=== PATIENT | female | born 1995 | race Two or more races ===

== ENCOUNTER 2016-09-23 10:03 | Outpatient (CLI) | payer MEDICAID | END 2016-09-23 10:04 | disposition home or self-care (01) | DX: Z36 Encounter for antenatal screening of mother (principal) ==

== ENCOUNTER 2016-09-30 12:38 | Outpatient (CLI) | payer MEDICAID | END 2016-09-30 12:39 | disposition home or self-care (01) | DX: Z36 Encounter for antenatal screening of mother (principal) ==

== ENCOUNTER 2016-10-10 14:58 | Outpatient (CLI) | payer MEDICAID | END 2016-10-10 16:32 | disposition home or self-care (01) | DX: O99.89 Other specified diseases and conditions complicating pregnancy, childbirth and the puerperium (principal); M25.559 Pain in unspecified hip; Z3A.22 22 weeks gestation of pregnancy ==

== ENCOUNTER 2016-11-14 09:36 | Outpatient (CLI) | payer MEDICAID | END 2016-11-14 09:37 | disposition home or self-care (01) | DX: Z36 Encounter for antenatal screening of mother (principal) ==

== ENCOUNTER 2016-11-15 11:55 | Outpatient (CLI) | payer MEDICAID | END 2016-11-15 13:30 | disposition home or self-care (01) | DX: O23.12 Infections of bladder in pregnancy, second trimester (principal); Z3A.27 27 weeks gestation of pregnancy ==

== ENCOUNTER 2017-01-17 10:58 | Outpatient (CLI) | payer MEDICAID | END 2017-01-17 10:59 | disposition home or self-care (01) | LOC: LAB.R 10:58 | PROVIDERS: ATTEND Obstetrics & Gynecology | DX: Z36 Encounter for antenatal screening of mother (principal); N39.0 Urinary tract infection, site not specified | CPT/HCPCS: 87081; 87086; 87797 ==

== ENCOUNTER 2017-02-13 21:38 | Outpatient (CLI) | payer MEDICAID ==
[2017-02-13 22:35] VITALS: BP 129/76
== END 2017-02-13 22:15 | disposition home or self-care (01) ==
LOC: WFO 21:38 → OB 21:40 → WFO 22:15
PROVIDERS: ATTEND Obstetrics & Gynecology
DX: Z34.03 Encounter for supervision of normal first pregnancy, third trimester (principal)
CPT/HCPCS: 59025; 99211

== ENCOUNTER 2017-02-15 19:35 | Outpatient (CLI) | payer MEDICAID ==
[2017-02-15 19:49] VITALS: BP 132/62
== END 2017-02-15 20:35 | disposition home or self-care (01) ==
LOC: WFO 19:35 → OB 19:36 → WFO 20:35
PROVIDERS: ATTEND Obstetrics & Gynecology
DX: O47.1 False labor at or after 37 completed weeks of gestation (principal); Z3A.40 40 weeks gestation of pregnancy
CPT/HCPCS: 99213

== ENCOUNTER 2017-02-16 07:50 | Inpatient (IN) | payer MEDICAID ==
[2017-02-16] MEDS ORDERED: ACETAMINOPHEN 325 MG TABLET PO PRN (11:44)
[2017-02-16] MEDS ORDERED: ONDANSETRON 4 MG/2 ML VIAL IVP PRN (11:44)
[2017-02-16] MEDS ORDERED: SODIUM CHLORIDE FLUSH 0.9% 10 ML SYRINGE IVP PRN (11:44)
[2017-02-16] MEDS ORDERED: PENICILLIN G POTASSIUM 5,000,000 UNIT in SODIUM CHLORIDE 0.9% MINIBAG 100 ML IV ONE (12:00)
[2017-02-16] MEDS ORDERED: OXYTOCIN/LACTATED RINGERS 250 ML IV SCH (12:00)
[2017-02-16] MEDS: LACTATED RINGERS 1,000 ML IV SCH ×2 (12:26→19:56)
[2017-02-16 12:36] LABS: BASOPHILS % (AUTO) 0.2 %; EOSINOPHILS % (AUTO) 0.1 %; HCT - HEMATOCRIT 37.7 % (37.0-47.0); HGB - HEMOGLOBIN 12.8 g/dL (12.0-16.0); LYMPHOCYTES # (AUTO) 1.6 10^3/uL (1.5-3.5); LYMPHOCYTES % (AUTO) 13.6 %; MEAN CORPUSCULAR HEMOGLOBIN 30.1 pg (27.0-31.0); MEAN CORPUSCULAR HGB CONC 33.8 g/dL (32.0-36.0); MEAN CORPUSCULAR VOLUME 89.1 fL (81.0-99.0); MEAN PLATELET VOLUME 10.2 fL (7.9-10.8); MONOCYTES # (AUTO) 0.8 10^3/uL (0.0-1.0); MONOCYTES % (AUTO) 6.5 %; NEUTROPHILS # (AUTO) 9.4 10^3/uL (1.5-6.6); NEUTROPHILS % (AUTO) 79.6 %; RED BLOOD COUNT 4.23 10^6/uL (4.20-5.40); RED CELL DISTRIBUTION WIDTH 13.6 % (12.0-15.0); UNCORRECTED WHITE BLOOD COUNT 11.8 x10^3/uL; WHITE BLOOD COUNT 11.8 x10^3/uL (4.8-10.8)
--- NOTE | 2017-02-16 13:37 | HISTORY & PHYSICAL EXAMINATION ---
DATE OF ADMISSION: 02/16/2017 DIAGNOSES: 1. Term , 40 weeks 3 days. 2. Ruptured membranes. 3. GBS maternal colonization. The patient is a 21-year-old prima at 40 weeks 3 days gestation based on an EDC of . [facility] 11 [facility]. She had been se en yesterday evening for suspected ruptured membranes, but was fern and negative nitrazine. This morn ing she awoke with clear fluid in her panties and bed clothing and presents again for retesting. Test ing is positive for ruptured membranes. Her cervix is unchanged at roughly 2 cm, -1 station and 50% e ffacement, soft. Baseline obstetric labs: Blood type O positive, antibody screen negative. HIV negative. Baseline hemo globin 12.3. RPR negative. Rubella immune. GBS surface antigen negative. Urinalysis negative. Chlamyd ia/gonorrhea negative. Cystic fibrosis screen negative. GBS positive. Glucose challenge test normal 09 15. PAST MEDICAL HISTORY: The patient denies hospitalizations or surgical history. On one occasion in the past she was told that she had asthma, but she has had no recurrent symptoms. ALLERGIES: NO KNOWN DRUG ALLERGIES. MEDICATIONS: vitamins and iron. FAMILY HISTORY: No chromosomal abnormalities or inheritable defects known. SOCIAL HISTORY: Unemployed, high school graduate. No drug, tobacco, or alcohol use. REVIEW OF SYSTEMS: CONSTITUTION: The patient reports malaise 2 days ago, but currently has no fevers or rigors. HEENT: Negative. PULMONARY: Negative. CARDIAC: Negative. GI: Negative. : Reference HPI and records, essentially negative. SKIN: Negative. NEURO: Negative. MUSCULOSKELETAL: Negative. PHYSICAL EXAMINATION: GENERAL: Lying comfortably in bed. Family in attendance. VITAL SIGNS: Temperature 96.8, pulse 78, blood pressure 133/80, respirations 18, pulse oxygen 100. HEENT: Moist mucous membranes. EOMI, nonicteric sclerae. No thyromegaly. Supple neck. LUNGS: Clear to auscultation. CARDIAC: Regular, no murmur, no gallop. ABDOMEN: No hepatosplenomegaly or tenderness. UTERUS: Appropriate size, vertex presentation, flaccid. EXTERNAL GENITALIA: Shaven hair, no lesions. VAGINA: Runny mucous discharge. Fern positive. CERVIX: 2 cm, 50% -1 station. HEART TRACING: Baseline 135, moderate variability, accelerations, occasional early deceleration ; contractions 4.5 minutes. EXTREMITIES: Nonedematous. NEURO: Grossly intact, patellar reflexes 2+ and equal. SKIN: No rashes or wounds. LABS: Initial admission labs pending. ASSESSMENT: The patient is a 21-year-old term with known GBS colonization who comes now wit h proven rupture of membranes. At minimum a period of rupture has been 4 to 6 hours, possibly a littl e longer. She has no fevers or signs of involvement. Given the possibility this is a longer ter m leakage, augmentation of contractions would be advisable to prevent prolonged ruptures in a GBS pos itive patient. Currently there are no concerns about well being or maternal well being. No evid ence of asthma on physical examination. PLAN: 1. Begin GBS prophylaxis protocol. 2. Begin Pitocin augmentation of contractions. JOB #: [id number] EXT JOB #:[id number]
[2017-02-16] MEDS ORDERED: SODIUM CHLORIDE FLUSH 0.9% 10 ML SYRINGE IVP SCH (14:00)
[2017-02-16] MEDS ORDERED: PENICILLIN G POTASSIUM 2,500,000 UNIT in SODIUM CHLORIDE 0.9% 100ML 100 ML IV SCH (16:00)
[2017-02-16] MEDS: fentaNYL 100 MCG/2 ML VIAL IVP PRN ×3 (16:03→19:55)
[2017-02-16] MEDS: PENICILLIN G POTASSIUM 2,500,000 UNIT in SODIUM CHLORIDE 0.9% 100ML 100 ML IV SCH ×2 (16:26→20:38)
--- NOTE | 2017-02-16 16:26 | PROVIDER PROGRESS NOTE ---
Labor Progress Note - Instructions [place]/Slash: -Left hand click circles element as positive or present. -Right hand click slashes element as negative or not present. - Uterine Monitoring Uterine Monitoring Mode: positive: External toco Contraction Frequency (min/apart): Q2.5-3 Min Contraction Intensity: positive: Moderate Uterine Resting Tone: positive: Soft - Monitoring Monitor Mode: positive: External ultrasound Heart Rate Baseline: 125 Heart Rate Variability: positive: Moderate (6-25 bmp) Accelerations: positive: Present, 15x15 Decelerations: positive: None Strip Review: positive: Category I - Vaginal Exam Dilation (in cm): 4 Station: positive: 0 - Labor Progress Note Labor Progress Note/Additional Text: Fentanyl not effective but refuses Epidural
--- NOTE | 2017-02-16 19:40 | PROVIDER PROGRESS NOTE ---
Labor Progress Note - Instructions [place]/Slash: -Left hand click circles element as positive or present. -Right hand click slashes element as negative or not present. - Uterine Monitoring Uterine Monitoring Mode: positive: External toco, Palpation Contraction Frequency (min/apart): Q2min Contraction Intensity: positive: Moderate to strong Uterine Resting Tone: positive: Soft - Monitoring Monitor Mode: positive: External ultrasound Heart Rate Baseline: 125 Heart Rate Variability: positive: Moderate (6-25 bmp) Accelerations: positive: Present, 15x15 Decelerations: positive: None Strip Review: positive: Category I - Vaginal Exam Dilation (in cm): 7 Effacement (%): 100% Station: positive: 0 Cervical Position: positive: Anterior - Labor Progress Note Labor Progress Note/Additional Text: Forward progress but pain control is an issue. Pt refuses epidural despite discussion for her to reconsider.
[2017-02-16] MEDS ORDERED: LIDOCAINE 1% 50 ML MDV ONE ×2 (21:08→22:25)
--- NOTE | 2017-02-16 21:08 | PROVIDER PROGRESS NOTE ---
Labor Progress Note - Instructions [place]/Slash: -Left hand click circles element as positive or present. -Right hand click slashes element as negative or not present. - Uterine Monitoring Uterine Monitoring Mode: positive: External toco Contraction Frequency (min/apart): Q 2.5 min Contraction Intensity: positive: Moderate to strong Uterine Resting Tone: positive: Soft - Monitoring Monitor Mode: positive: External ultrasound Heart Rate Baseline: 130 Heart Rate Variability: positive: Moderate (6-25 bmp) Accelerations: positive: Present, 15x15 Strip Review: positive: Category I - Vaginal Exam Dilation (in cm): 10 Effacement (%): 100% Station: positive: 2 Cervical Position: positive: Anterior
[2017-02-16] MEDS ORDERED: MINERAL OIL LIGHT 10 ML MC ONE (21:09)
[2017-02-16] MEDS ORDERED: HYDROcod/ACETAM 5/325 MG TABLET PO PRN (21:40)
[2017-02-16] MEDS ORDERED: HYDROCORTISONE/PRAMOXINE 10 GM PR PRN (21:40)
[2017-02-16] MEDS ORDERED: WITCH HAZEL/GLYCERIN 1 EACH MED..PAD TOP PRN (21:40)
[2017-02-16] MEDS ORDERED: OXYTOCIN/LACTATED RINGERS 250 ML IV ONE (21:40)
[2017-02-16] MEDS ORDERED: diphenhydrAMINE 25 MG CAPSULE PO PRN (21:40)
[2017-02-16] MEDS ORDERED: LACTATED RINGERS 1,000 ML IV SCH (22:00)
[2017-02-16] MEDS: IBUPROFEN 800 MG TABLET PO SCH (23:55)
[2017-02-17] MEDS: IBUPROFEN 800 MG TABLET PO SCH ×3 (06:23→18:30)
--- NOTE | 2017-02-17 07:13 | PROCEDURE REPORT ---
DATE OF PROCEDURE: 02/16/2017 00:00:00 DIAGNOSES 1. GBS positive. 2. Term in labor. 3. Pitocin augmentation. POST-DELIVERY DIAGNOSES 1. GBS positive. 2. Term in labor. 3. Pitocin augmentation. PROCEDURE: Normal vaginal delivery over an intact perineum, living male fetus. ANESTHESIA: Local 10 mL. RACE ENGINE BUILDER: Shubham Morales MD, FACOG. COMPLICATIONS: None. EBL 300 cc DRAINS: None. FINDINGS: At 2132 hours, a living male was born weighing 6 lbs 15oz and scoring Apgars of 8/9. There was caput noted on the baby's left occipital area, possibly small hematoma. No congenital anomalies. Placenta was delivered intact with 3-vessel cord. There was no cord entanglement. Placenta was grade 2. Examination of vulva, vagina, and cervix found no lacerations. TECHNIQUE: The patient was found to be complete at or about 9 o'clock. Began to push with excellent effort. She smoothly brought the head down to the perineum. Stretch and push method was used. She atraumatically crowned and delivered at 2130. Shoulders were delivered without difficulty. Placenta was delivered shortly thereafter intact. Mother, child, and family all bonded well. The patient had greater than 2 doses of penicillin. JOB #: [id number] EXT JOB #:[id number] CHRISTIAN
[2017-02-17] MEDS: DOCUSATE SODIUM 100 MG CAPSULE PO SCH ×2 (08:59→17:01)
--- NOTE | 2017-02-17 15:32 | PROVIDER PROGRESS NOTE ---
Subjective - Prog Note Date Prog Note Date: 02/17/17 Prog Note Time: 15:31 - Subjective Pt reports feeling: Improved (Pain 2/10 cramps with breast feeding) Objective - Vital Signs/Intake & Output Reviewed Vital Signs: Yes Vital Signs: Vital Signs x48h Temp Pulse Resp BP Pulse Ox 02/17/17 12:45 37 C 94 20 125/71 100 02/17/17 08:29 36.9 C 96 14 116/63 100 Intake & Output: Intake & Output 02/14/17 02/15/17 02/16/17 02/17/17 23:59 23:59 23:59 23:59 Intake Total 1000 2350 Output Total 700 800 Balance 300 1550 - Objective General Appearance: positive: No acute distress, Alert Respiratory: positive: Chest non-tender, No respiratory distress, Breath sounds nml. negative: Wheezes Cardiovascular: positive: Regular rate & rhythm, No murmur, No gallop Abdomen: positive: Non-tender, Mass (U at U) Neurologic/Psychiatric: positive: Oriented x3 - Lab Results [place] Bones: 02/16/17 12:11 Assessment/Plan - Problem List (1) Vaginal delivery Impression: progressing well anticipate discharge tomorrow
[2017-02-18] MEDS: IBUPROFEN 800 MG TABLET PO SCH ×2 (01:09→07:18)
--- NOTE | 2017-02-18 08:49 | PROVIDER PROGRESS NOTE ---
Subjective - Prog Note Date Prog Note Date: 02/18/17 Prog Note Time: 08:39 - Subjective Pt reports feeling: No change (pt is doing well. Pain 2/10 with breast feeding. ) Objective - Vital Signs/Intake & Output Reviewed Vital Signs: Yes Vital Signs: Vital Signs x48h Temp Pulse Resp BP BP Pulse Ox 02/18/17 07:45 35.9 C L 69 19 111/48 L 99 02/18/17 06:33 37.0 C 71 18 107/52 L 100 Intake & Output: Intake & Output 02/15/17 02/16/17 02/17/17 02/18/17 23:59 23:59 23:59 23:59 Intake Total 1000 3000 Output Total 700 800 Balance 300 2200 - Objective General Appearance: positive: No acute distress, Alert Respiratory: positive: Chest non-tender, No respiratory distress, Breath sounds nml Cardiovascular: positive: Regular rate & rhythm, No murmur, No gallop Abdomen: positive: Non-tender, No organomegaly, Mass (U-1) Back: negative: CVA tenderness (R), CVA tenderness (L) Extremities: positive: Non-tender Neurologic/Psychiatric: positive: Oriented x3 - Lab Results Fish Bones: 02/16/17 12:11 Assessment/Plan - Problem List (1) Vaginal delivery Impression: P tis doing well. reviewed breast feeding, contraception, mastitis, adn bleeding. Discharge meds; Motrin 600mg Colace 100mg
--- NOTE | 2017-02-18 08:57 | Discharge Plan ---
Discharge Plan Disposition: 01 Home, Self Care Condition: Good Diet: Regular Activity Restrictions: pelvic rest Shower Restrictions: No Driving Restrictions: No Weight Bearing: Full Weight No Smoking: If you smoke, Please STOP! Call for help.
[2017-02-18] MEDS: DOCUSATE SODIUM 100 MG CAPSULE PO SCH (10:00)
[2017-02-18 12:13] VITALS: BP 112/65
--- NOTE | 2017-02-18 12:15 | Labor Flowsheet ---
Labor Flowsheet Datetime Report Generated by CPN: 02/18/2017 12:14 Datetime: 02/18/2017 07:45 VITAL SIGNS NBP Sys/Sejal/Mean (mmHg): 111 : 48 : 63 Pulse: 74 SpO2 (%): 100 Datetime: 02/18/2017 07:44 Temperature (F): 96.6 Temperature (C): 35.9 Temperature (C): 35.9 Datetime: 02/16/2017 21:35 Contraction Comments: placenta spont delivered Datetime: 02/16/2017 21:32 Stage of : Comments: viable boy Datetime: 02/16/2017 21:30 UTERINE ACTIVITY Monitor Mode: External Frequency (min): 1.5-3 Quality: Moderate Duration (sec): 60-120 Pattern: Normal: <= 5 Contractions in 10 Minutes Resting Tone (Palpate): Relaxed ASSESSMENT A Monitor Mode: External US Monitor Interventions for FHR: Ultrasound Adjusted FHR Baseline Rate : 135 FHR Baseline Changes: Return to Previous Baseline Variability: Moderate 6-25 bpm Accelerations: None Decelerations: Variable Category: Category II PAIN Pain Scale: 10 Pain Presence: Intermittent Pain Type: Sharp; Pressure Pain Location: Abdomen; Back; Perineum Pain Relief Measures: Comfort Measures (Annotations: pushing with contractions) Pain Coping: Other Medication Comments: Mineral oil applied to vaginal tissue LaborFlag: Labor Datetime: 02/16/2017 21:19 Actions for Decelerations: Oxygen Applied; IV Bolus; Provider Notified PATIENT CARE IV/Blood Work: IV Bolus Started Oxygen Method: Non-Rebreather Patient Position/Activity: Left Lateral COMMUNICATION Communication: Provider at Bedside Provider Notified (Name): Morales Datetime: 02/16/2017 21:15 Monitor Interventions for UA: [place] Adjusted Datetime: 02/16/2017 21:10 TEACHING Instructional Method: Verbal; Patient Instructed; Family/Support Person Instructed; Verbalized Unde rstanding Plan of Care: Vaginal Delivery Labor/Induction: Interventions; Pushing Methods Communication Comments: Pt urge to push Datetime: 02/16/2017 21:03 VAGINAL EXAM Dilatation (cm): 10.0 Effacement (%): 100 Station: 3 Exam by: Andrew Vaginal Bleeding: Normal Show Cervix, Consistency: Soft Datetime: 02/16/2017 20:38 Antibiotics: Penicillin IV (Units) @ 2.5M units Datetime: 02/16/2017 20:30 Pitocin Checklist: At Least 1 Acceleration of 15 bpm x 15 Seconds in 30 Minutes or Adequate Variabi lity; No More than 1 Late Deceleration Occurred in Past 30 Minutes; No More than 2 Variable Decelerat ions > 60 Seconds in Duration and decreasing >60 bpm in 30 minutes; No More than 5 Uterine Contractio ns in 10 Minutes for any 20 Minute Interval; Uterus Palpates Soft between Contractions Pain Goal: 8 Datetime: 02/16/2017 20:12 Respirations: 24 Datetime: 02/16/2017 19:57 Analgesics/Sedatives: Fentanyl (mcg) @ 50 Datetime: 02/16/2017 19:43 MEDICATIONS Pitocin (milliunits): Decreased to @ 2 Datetime: 02/16/2017 19:30 Membrane Status: Ruptured Membranes Rupture Method: Artificial Amniotic Fluid Color: Clear Amniotic Fluid Amount: Small Amniotic Fluid Odor: Normal Membrane Comments: forebag ruptured by Dr Morales Vaginal Exam Comments: AROM of forebag; clear fluid MATERNAL ASSESSMENT Level of Consciousness: Fully Conscious DTR's/Clonus: DTRs 2+; No Clonus Headache: Denies Breath Sounds, Left: Clear and Equal Breath Sounds, Right: Clear and Equal Nausea/Vomiting: Denies RUQ Epigastric Pain: Denies Comfort Measures: Breathing/Relaxation; Coaching; Family Support I/O Interventions: Ice Chips Given Provider Reviewed Strip: Yes Pain Management: IV Narcotics; Epidural; PRN Medications; Pain Scale/Goals; Comfort Measures Notification Reason: Status Update; Status; Labor Status; Uterine Activity; Pain Datetime: 02/16/2017 19:27 Lie 'A': Longitudinal Datetime: 02/16/2017 18:27 Antiemetics/Antacids: Zofran (mg) @ 4 Datetime: 02/16/2017 18:19 Patient Care Comments: vomitting
--- NOTE | 2017-02-19 22:18 | DISCHARGE SUMMARY ---
DATE OF ADMISSION: 02/16/2017 DATE OF DISCHARGE: 02/18/2017 ADMISSION DIAGNOSIS: Term ruptured membranes, group B streptococcus positive, active labor. DISCHARGE DIAGNOSIS: Term ruptured membranes, group B streptococcus positive, active labor. PROCEDURES: 1. Epidural 2. Group B streptococcus antibiotics 3. Pitocin augmentation 4. Spontaneous vaginal delivery. PRESENTING HISTORY: The patient is a 21-year-old G1, P0, at 40 weeks 3 days, who presented with spontaneous rupture of membranes. Her care started at 11 weeks EGA. She was noted to be group B strep positive. Her laboratories showed her to be O positive. She was antibody screen negative, her hemoglobin was 12.3, her group B strep was noted to be positive. PAST MEDICAL HISTORY: Noncontributory. PHYSICAL EXAMINATION ON PRESENTATION: Cervix was 2 cm, 50% effaced, and -1. Her heart tracing was reassuring. LABORATORIES: Upon admission, her white count was 11.8, hemoglobin was 12.8, hematocrit was 37.7, and platelets were 242. HOSPITAL COURSE: Patient was admitted, allowed to labor. During her labor an epidural was placed for labor analgesia. She progressed to complete and pushed well. She delivered a live male weighing 6 pounds 15 ounces with Apgars of 8 and 9. The perineum was noted to be intact. The cord was noted to be 3 vessel. Placenta was grade 2. Estimated blood loss at time of delivery was 300 mL. Mother's course has been unremarkable. She has been tolerating a regular diet. She is at this time. Her pain is well controlled with Motrin. She is being discharged to home today with instructions regarding , contraception, as well as mastitis. DISCHARGE MEDICATIONS Those of: 1. [place] 5/325. 2. Motrin 800 mg. 3. Colace 100 mg. She has been instructed to remain at pelvic rest for the next 6 weeks and to follow up in the clinic in 6 weeks. I have discussed contraception at this time ; the probability of proceeding on to having a Mirena IUD has been presented. JOB #: [id number] EXT JOB #:[id number] CHRISTIAN
== END 2017-02-18 12:10 | disposition home or self-care (01) | DRG 775 ==
LOC: LAB 07:50 → OB 07:52 → LAB 11:24 → OB 11:25
PROVIDERS: ADMIT Obstetrics & Gynecology; ATTEND Obstetrics & Gynecology
PROC: 10E0XZZ Delivery of Products of Conception, External Approach (ICD-10-PCS; principal; 2017-02-16)
DX: O99.824 Streptococcus B carrier state complicating childbirth (principal); O48.0 Post-term pregnancy; Z37.0 Single live birth; Z3A.40 40 weeks gestation of pregnancy; Z87.09 Personal history of other diseases of the respiratory system
CPT/HCPCS: 85025; 99214

== ENCOUNTER 2017-11-23 08:00 | Outpatient (CLI) | payer MEDICAID ==
[2017-11-23 12:02] LABS: BASOPHILS % (AUTO) 0.2 %; EOSINOPHILS # (AUTO) 0.1 10^3/uL (0.0-0.7); EOSINOPHILS % (AUTO) 0.9 %; HGB - HEMOGLOBIN 12.6 g/dL (12.0-16.0); LYMPHOCYTES # (AUTO) 1.9 10^3/uL (1.5-3.5); MEAN CORPUSCULAR HEMOGLOBIN 28.6 pg (27.0-31.0); MEAN CORPUSCULAR HGB CONC 32.9 g/dL (32.0-36.0); MEAN PLATELET VOLUME 10.1 fL (7.9-10.8); MONOCYTES # (AUTO) 0.5 10^3/uL (0.0-1.0); MONOCYTES % (AUTO) 5.1 %; NEUTROPHILS # (AUTO) 6.6 10^3/uL (1.5-6.6); NEUTROPHILS % (AUTO) 72.8 %; PLT - PLATELET COUNT 260 10^3/uL (130-450); RED BLOOD COUNT 4.41 10^6/uL (4.20-5.40); RED CELL DISTRIBUTION WIDTH 12.7 % (12.0-15.0)
[2017-11-23 12:40] LABS: ALBUMIN 4.4 g/dL (3.2-5.5); ALBUMIN/GLOBULIN RATIO 1.4 (1.0-2.2); ALKALINE PHOSPHATASE 104 IU/L (42-121); ALT ALANINE AMINOTRANSFERASE 12 IU/L (10-60); AST ASPARTATE AMINOTRANSFERASE 15 IU/L (10-42); BILIRUBIN,TOTAL 0.3 mg/dL (0.2-1.0); BUN - BLOOD UREA NITROGEN 6 mg/dL (6-20); CARBON DIOXIDE - CO2 24 mmol/L (21-32); CHLORIDE 100 mmol/L (101-111); CHOL/HDL RATIO 2.9 (<4.4); CHOLESTEROL 171 mg/dL; CREATININE 0.3 mg/dL (0.4-1.0); GFR - MDRD 284 (>89); GLUCOSE 79 mg/dL (70-100); HDL CHOLESTEROL 58 mg/dL; LDL CHOLESTEROL,CALCULATED 101 mg/dL; LDL/HDL RATIO 1.7 (<4.4); SODIUM 133 mmol/L (135-145); TOTAL PROTEIN 7.6 g/dL (6.7-8.2); VLDL CHOLESTEROL 12 mg/dL
== END 2017-11-23 08:01 | disposition home or self-care (01) ==
LOC: LAB.N 08:00
PROVIDERS: ATTEND Nurse Practitioner Gerontology
DX: Z13.9 Encounter for screening, unspecified (principal)
CPT/HCPCS: 36415; 80050; 80061; 83721

== ENCOUNTER 2018-08-31 12:48 | Outpatient (CLI) | payer MEDICAID ==
[2018-08-31 18:58] LABS: BASOPHILS % (AUTO) 0.2 %; EOSINOPHILS % (AUTO) 0.1 %; LYMPHOCYTES # (AUTO) 1.2 10^3/uL (1.5-3.5); LYMPHOCYTES % (AUTO) 12.4 %; MEAN CORPUSCULAR HEMOGLOBIN 31.1 pg (27.0-31.0); MEAN CORPUSCULAR HGB CONC 33.4 g/dL (32.0-36.0); MEAN CORPUSCULAR VOLUME 93.1 fL (81.0-99.0); MEAN PLATELET VOLUME 11.2 fL (7.9-10.8); MONOCYTES # (AUTO) 0.4 10^3/uL (0.0-1.0); MONOCYTES % (AUTO) 3.6 %; NEUTROPHILS # (AUTO) 8.4 10^3/uL (1.5-6.6); NEUTROPHILS % (AUTO) 83.7 %; PLT - PLATELET COUNT 227 10^3/uL (130-450); RED CELL DISTRIBUTION WIDTH 12.9 % (12.0-15.0)
[2018-08-31 19:35] LABS: ALBUMIN 4.7 g/dL (3.2-5.5); ALBUMIN/GLOBULIN RATIO 1.6 (1.0-2.2); BILIRUBIN,TOTAL 0.6 mg/dL (0.2-1.0); CALCIUM 9.6 mg/dL (8.5-10.3); CREATININE 0.5 mg/dL (0.4-1.0); TOTAL PROTEIN 7.7 g/dL (6.7-8.2)
== END 2018-08-31 23:59 | disposition home or self-care (01) ==
LOC: LAB.N 12:48
PROVIDERS: ATTEND Nurse Practitioner Gerontology
DX: R63.6 Underweight (principal); E87.1 Hypo-osmolality and hyponatremia; Z13.9 Encounter for screening, unspecified
CPT/HCPCS: 36415; 80050

== ENCOUNTER 2019-08-31 22:04 | Emergency (ER) | payer MEDICAID ==
[2019-08-31] MEDS ORDERED: ONDANSETRON ODT 4 MG TABLET TL STA (23:33)
[2019-08-31 23:45] VITALS: BP 106/79
--- NOTE | 2019-09-02 20:57 | ED Physician Documentation ---
History of Present Illness - Stated complaint Stated Complaint: ABD PX, NAUSEA, PRATT - Chief complaint Chief Complaint: Abd Pain - History obtained from History obtained from: Patient - History of Present Illness Timing: Today Improved by: no ameliorating factors Worsened by: no apparent exacerbating factors - Additonal information Additional information: c/o abdominal cramping, tremulousness, nausea without vomiting. symptoms started today. patients son is also registered in ED at this time with GI sx Review of Systems Constitutional: reports: Reviewed and negative Cardiac: reports: Reviewed and negative Respiratory: reports: Reviewed and negative GI: reports: Abdominal Pain (intermittent cramping), Nausea. denies: Vomiting, Constipation, Diarrhea : denies: Dysuria, Frequency PD PAST MEDICAL HISTORY - Past Medical History Past Medical History: No - Present Medications Home Medications: Ambulatory Orders Medication Instructions Recorded Confirmed Ondansetron Odt [Zofran] 4 mg TL Q6H PRN #10 tablet 08/31/19 - Allergies Allergies/Adverse Reactions: Allergies Allergy/AdvReac Type Severity Reaction Status Date / Time No Known Drug Allergies Allergy Verified 11/15/16 12:44 - Social History Does the pt smoke?: No Smoking Status: Never smoker PD ED PE NORMAL - Vitals Vital signs reviewed: Yes - General General: Alert and oriented X 3, No acute distress, Well developed/nourished - HEENT HEENT: Moist mucous membranes - Neck Neck: Supple, no meningeal sign - Cardiac Cardiac: RRR, No murmur - Respiratory Respiratory: No respiratory distress, Clear bilaterally - Abdomen Abdomen: Normal bowel sounds, Soft, Non tender, Non distended Results - Vitals Vitals: Oxygen O2 Source Room air PD MEDICAL DECISION MAKING - ED course Complexity details: considered differential, d/w patient ED course: well appearing, unremarkable physical exam. son is ED patient as well with GI symptoms. suspect viral process, no emergent testing indicated at this time. Departure - Departure Disposition: 01 Home, Self Care Clinical Impression: Diarrhea Qualifiers: Diarrhea type: presumed infectious Qualified Code(s): R19.7 - Diarrhea, unspecified Vomiting Qualifiers: Vomiting type: unspecified Vomiting Intractability: non-intractable Nausea presence: with nausea Qualified Code(s): R11.2 - Nausea with vomiting, unspecified Condition: Good Instructions: ED Diet Vomiting Diarrhea, ED Vomiting Diarrhea Nonspecific Ad Follow-Up: Maria Victoria Beckett ARNP [Primary Care Provider] - Prescriptions: Ondansetron Odt [Zofran] 4 mg TL Q6H PRN #10 tablet PRN Reason: Nausea / Vomiting Discharge Date/Time: 08/31/19 23:50
== END 2019-08-31 23:50 | disposition home or self-care (01) ==
LOC: ED 22:04
DX: R19.7 Diarrhea, unspecified (principal); R11.2 Nausea with vomiting, unspecified
CPT/HCPCS: 99282; 99284; Q0162

== ENCOUNTER 2019-10-29 12:32 | Emergency (ER) | payer MEDICAID ==
--- NOTE | 2019-10-29 14:30 | ED Physician Documentation ---
PD HPI HEENT - Stated complaint Stated Complaint: RT EAR PX - Chief complaint Chief Complaint: Heent - History obtained from History obtained from: Patient - History of Present Illness Timing - onset: How many days ago (2) Timing - duration: Days (2) Timing - details: Abrupt onset (she had ear pierced 2 days ago, and had onset of redness with swelling starting yesterday. No bruising. Had mild drainage from piercing site. Increased redness today.) Location: Right ear Associated symptoms: No: Fever, Congestion Review of Systems Constitutional: denies: Fever, Chills, Myalgias GI: denies: Nausea, Vomiting PD PAST MEDICAL HISTORY - Past Medical History Past Medical History: No Endocrine/Autoimmune: None - Present Medications Home Medications: Ambulatory Orders Medication Instructions Recorded Confirmed Mupirocin 1 applic TP TID #15 g 10/29/19 Naproxen 375 mg PO BID #20 tablet 10/29/19 Sulfamethox/Trimeth 800/160 1 each PO BID #14 tablet 10/29/19 [Bactrim Ds 800/160] - Allergies Allergies/Adverse Reactions: Allergies Allergy/AdvReac Type Severity Reaction Status Date / Time No Known Drug Allergies Allergy Verified 10/29/19 12:40 - Social History Does the pt smoke?: No Smoking Status: Never smoker PD ED PE NORMAL - Vitals Vital signs reviewed: Yes - General General: Alert and oriented X 3, No acute distress, Well developed/nourished - HEENT HEENT: Moist mucous membranes. No: Ears normal (left ear normal. right ear with normal canal and TM. the ear pinna has several piercings. The new one is a bar that enters at 2 points, and there is redness with swelling but no fluctuance at the apex of the pinna, with redness to posterior aspect. No drainage and no fluctuant focus.) - Neck Neck: Supple, no meningeal sign, No adenopathy - Cardiac Cardiac: RRR, No murmur - Respiratory Respiratory: Clear bilaterally PD ED PE EXPANDED - HEENT HEENT Visual: 1 - tenderness 2 - swelling Results - Vitals Vitals: Vital Signs - 24 hr 03/10/20 03/10/20 12:41 15:01 Temperature 36.3 C L 36.7 C Heart Rate 71 93 Respiratory 16 12 Rate Blood Pressure 98/62 113/60 O2 Saturation 100 98 Oxygen O2 Source Room air PD MEDICAL DECISION MAKING - ED course Complexity details: considered differential (cellulitic changes at upper part of new bar piercing. No fluctuance. Talked with her about trying abx with keeping piercing in, but if not improved over 1-2 days or worse, then would need to remove it as well. ), d/w patient Departure - Departure Disposition: Home, Self Care Clinical Impression: Cellulitis of earlobe Qualifiers: Laterality: right Qualified Code(s): H60.11 - Cellulitis of right external ear Condition: Stable Record reviewed to determine appropriate education?: Yes Instructions: ED Infec Skin Cellulitis Follow-Up: Maria Victoria Beckett ARNP [Primary Care Provider] - Prescriptions: Mupirocin 1 applic TP TID #15 g Naproxen 375 mg PO BID #20 tablet Sulfamethox/Trimeth 800/160 [Bactrim Ds 800/160] 1 each PO BID #14 tablet Comments: Cleanse the piercing sites with dilute peroxide with water to cleanse the dried blood. Do it gently with a Q-tip and make sure he gets clean. Apply mupirocin antibiotic ointment to the sites. Bactrim antibiotic orally for the skin infection. Naproxen anti-inflammatory for pain and inflammation. Add Tylenol if needed. Recheck if not improved well over the next 2 to 3 days return if worsening. Discharge Date/Time: 10/29/19 15:09
[2019-10-29] MEDS ORDERED: IBUPROFEN 600 MG TABLET PO STA (14:51)
[2019-10-29] MEDS ORDERED: SULFAMETH/TRIMETH DS 800/160 MG TABLET PO STA (14:51)
[2019-10-29 15:02] VITALS: BP 113/60
== END 2019-10-29 15:09 | disposition home or self-care (01) ==
LOC: ED 12:32
DX: H60.11 Cellulitis of right external ear (principal)
CPT/HCPCS: 99283; 99284; A9270

== ENCOUNTER 2020-05-07 07:00 | Outpatient (CLI) | payer MEDICAID ==
[2020-05-07 16:30] LABS: BILIRUBIN,URINE NEGATIVE (NEGATIVE); GLUCOSE, URINE (UA) NEGATIVE (NEGATIVE); KETONES,URINE (UA) NEGATIVE (NEGATIVE); LEUKOCYTE ESTERASE, URINE NEGATIVE (NEGATIVE); NITRITE,URINE NEGATIVE (NEGATIVE); OCCULT BLOOD,URINE TRACE-INTA (NEGATIVE); PROTEIN,URINE NEGATIVE (NEGATIVE); UROBILINOGEN,URINE 0.2 (NORMAL) E.U./dL (NORMAL)
[2020-05-07 16:58] LABS: AMORPHOUS SEDIMENT,UR Moderate /LPF; BACTERIA,URINE None Seen /HPF (None Seen); CLARITY,URINE CLEAR (CLEAR); SQUAMOUS EPITHELIAL CELL,UR FEW Squamous (<= Few)
== END 2020-05-07 23:59 | disposition home or self-care (01) ==
LOC: LAB.R 07:00
PROVIDERS: ATTEND Advanced Practice Midwife
DX: R30.0 Dysuria (principal)
CPT/HCPCS: 81001; 87086

== ENCOUNTER 2020-08-28 10:30 | Outpatient (CLI) | payer MEDICAID ==
[2020-08-28 17:27] LABS: BILIRUBIN,URINE NEGATIVE (NEGATIVE); GLUCOSE, URINE (UA) NEGATIVE (NEGATIVE); KETONES,URINE (UA) TRACE mg/dL (NEGATIVE); LEUKOCYTE ESTERASE, URINE TRACE (NEGATIVE); NITRITE,URINE NEGATIVE (NEGATIVE); OCCULT BLOOD,URINE SMALL (NEGATIVE); PROTEIN,URINE NEGATIVE (NEGATIVE); UROBILINOGEN,URINE 0.2 (NORMAL) E.U./dL (NORMAL)
[2020-08-28 17:33] LABS: CLARITY,URINE CLOUDY (CLEAR)
[2020-08-28 17:46] LABS: AMORPHOUS SEDIMENT,UR Marked /LPF; BACTERIA,URINE None Seen /HPF (None Seen); RBC,URINE 0-5 /HPF (0-5); SQUAMOUS EPITHELIAL CELL,UR NONE SEEN (<= Few)
== END 2020-08-28 23:59 | disposition home or self-care (01) ==
LOC: LAB.N 10:30
PROVIDERS: ATTEND Advanced Practice Midwife
DX: Z32.01 Encounter for pregnancy test, result positive (principal)
CPT/HCPCS: 81001; 81003; 87086

== ENCOUNTER 2020-09-02 06:43 | Outpatient (CLI) | payer MEDICAID ==
--- OUTSIDE RECORDS SUMMARY | 2020-09-02 06:46 | EXTERNAL MEDICAL SUMMARY RPT | Continuity of Care Document ---
:1995 Demographics Phone Unavailable Preferred Language spn Marital Status Unknown Sabianist Affiliation Unknown Race Unknown Ethnic Group Unknown Author Organization [place] Address [address] [phone] Phone Care Team Providers Name Role Phone Michell Beckett Unavailable Unavailable MICHELL BECKETT Unavailable Unavailable Referrals, Marisa Xie, Unavailable Unavailable RN, Sharifa Williamson, Unavailable Unavailable OPERATIONS MANAGER, Ashly Silva, Unavailable Unavailable Caroline Mata Unavailable Unavailable Problems date description facility 2016-07-26 08:00 ENCNTR SCREEN FOR INFECTIONS [facility] SEXL MODE OF TRANSMISS 2016-07-26 16:07 ENCOUNTER FOR [facility] SCREENING OF MOTHER 2016-09-23 10:03 ENCOUNTER FOR [facility] SCREENING OF MOTHER 2016-09-30 12:38 ENCOUNTER FOR [facility] SCREENING OF MOTHER 2016-10-10 14:58 PAIN IN UNSPECIFIED HIP [facility] 2016-10-10 14:58 OTH DISEASES AND CONDITIONS [facility] COMPL PREG/CHLDBRTH 2016-10-10 14:58 22 WEEKS GESTATION OF [facility] 2016-11-14 09:36 ENCOUNTER FOR [facility] SCREENING OF MOTHER 2016-11-15 11:55 INFECTIONS OF BLADDER IN [facility] , SECOND TRIMESTER 2016-11-15 11:55 27 WEEKS GESTATION OF [facility] 2017-01-17 10:58 URINARY TRACT INFECTION, SITE [facility] NOT SPECIFIED 2017-01-17 10:58 ENCOUNTER FOR [facility] SCREENING OF MOTHER 2017-02-16 11:25 FALSE LABOR AT OR AFTER 37 [facility] COMPLETED WEEKS OF GESTATION 2017-02-16 11:25 POST-TERM [facility] 2017-02-16 11:25 STREPTOCOCCUS B CARRIER STATE [facility] COMPLICATING CHILDBIRTH 2017-02-16 11:25 SINGLE LIVE [facility] 2017-02-16 11:25 40 WEEKS GESTATION OF [facility] 2017-02-16 11:25 PERSONAL HISTORY OF OTHER [facility] DISEASES OF THE RESPIRATORY SYSTEM 2017-11-23 08:00 ENCOUNTER FOR SCREENING, [facility] UNSPECIFIED 2018-08-31 12:48 HYPO-OSMOLALITY AND [facility] HYPONATREMIA 2018-08-31 12:48 UNDERWEIGHT [facility] 2018-08-31 12:48 ENCOUNTER FOR SCREENING, [facility] UNSPECIFIED 2019-08-31 22:04 UNSPECIFIED ABDOMINAL PAIN [facility] 2019-08-31 22:04 NAUSEA WITH VOMITING, [facility] UNSPECIFIED 2019-08-31 22:04 DIARRHEA, UNSPECIFIED [facility] 2019-10-29 12:32 CELLULITIS OF RIGHT EXTERNAL [facility] EAR 2019-10-29 12:32 OTALGIA, RIGHT EAR [facility] 2020-05-07 07:00 DYSURIA [facility] 2020-06-09 15:00 UNDERWEIGHT [facility] 2020-07-21 00:00:00 Other procreative management [facility] CPV counseling and advice [facility] 2020-07-21 00:00:00 ALBUMIN, SERUM [facility] n's [facility] CPV [facility] 2020-07-21 00:00:00 CALCIUM, IONIZED [facility] n's Care CPV RH 2020-07-21 00:00:00 Removal of subcutaneous [facility] CPV contraceptive done [facility] 2020-07-21 00:00:00 Encounter for Surveillance of [facility] CPV implantable subdermal RHC contraceptive 2020-07-21 00:00:00 Encounter for surveillance of [facility] CPV other contraceptives [facility] 2020-07-21 00:00:00 VITAMIN D, 25-OH TOTAL, [facility] 2020-07-21 00:00:00 [facility] 2020-07-21 00:00[facility] 2020-07-21 00:00:00 [facility] counseling and advice on [facility] procreation 2020-07-21 00:00:00 [facility] subject RH 2020-08-28 00:00 ENCOUNTER FOR TEST, [facility] RESULT POSITIVE 2020-08-28 00:00:00 examination or test, [facility] CPV positive result [facility] 2020-08-28 00:00:00 US OB <14 WEEKS [facility] CPV RHC 2020-08-28 00:00:00 US TRANSVAGINAL, OB [facility] Wo en's Care CPV RHC 2020-08-28 00:00:00 Urinalysis with Microscopic [facility] CPV Exam, Culture in Indicated [facility] 2020-08-28 00:00:00 Encounter for test, [facility] CPV result positive [facility] 2020-08-28 00:00:00 Health-related behavior [facility] RHC 2020-08-28 00:00:00 Exercise [facility] CPV RH 2020-08-28 00:00:00 Alcohol use [facility] RHC 2020-08-28 00:00:00 Tobacco use and exposure [facility] 2020-08-28 00:00:00 test positive [facility] RHC 2020-08-28 00:00:00 Never smoker [facility] CPV RHC 2020-08-28 00:00:00 Employment detail [facility] RHC 2020-08-28 00:00:00 Tobacco smoking status [facility] 2020-08-28 10:30 ENCOUNTER FOR TEST, [facility] RESULT POSITIVE Allergies date description facility CODEINE [facility] FUROSEMIDE [facility] HYDROCHLOROTHIAZIDE [facility] Medi [facility] Center NO ALLERGY INFORMATION AVAILABLE [facility] COCONUT OIL [facility] No Known Drug Allergies [facility] BICALUTAMIDE [facility] LORAZEPAM [facility] NO KNOWN ALLERGIES [facility] No Known Allergies [facility] ETODOLAC [facility] TRAMADOL [facility] No Known Allergies [facility] No Known Medication Allergies [facility] Medications date description facility 2020-08-28 00:00:00 [facility] 2020-08-28 00:00:[facility] 2020-08-28 00:00:00 [id number] [facility] 2020-08-28 00:00:00 [facility] 2020-08-28 00:00:00 [facility] 2020-08-28 00:00:00 [id number] [facility] Procedures date description facility 2020-07-21 00:00:00 NEXPLANON REMOVAL [facility] RHC date description facility 2020-07-21 00:00:00 [facility]HC date description facility 2020-07-21 00:00:00 NEXPLANON REMOVAL [facility] date description facility 2020-07-21 00:00:00 [facility] RHC date description facility 2020-07-21 00:00:00 NEXPLANON REMOVAL [facility] RHC date description facility 2020-07-21 00:00:00 [facility] RHC date description facility 2020-08-28 00:00:00 [facility]inalysis with Microscopic [facility] Exam, Culture in Indicated RHC date description facility 2020-08-28 00:00:00 POC CHORIONIC GONADOTROPIN [facility] ASSAY RHC date description facility 2020-08-28 00:00:00 [facility] RHC date description facility 2020-08-28 00:00:00 POC CHORIONIC [facility]ADOTROPIN [facility] ASSAY RHC date description facility 2020-08-28 00:00:00 [facility] R[facility] Results test status date ordered by attending specimen bri e null P 2020-08-28 [facility] 08-28 16:54:00 10:30:00 null F 2020-08-28 [facility] 08-28 16:54:00 10:30:00 null F 2020-08-28 [facility] 08-28 16:54:00 10:30:00 null F 2020-08-28 [facility] 08-28 16:54:00 10:30:00 null F 2020-08-28 [facility] 08-28 16:54:00 10:30:00 null F 2020-08-28 [facility] 08-28 16:54:00 10:30:00 null F 2020-08-28 [facility] 08-28 16:54:00 10:30:00 null F 2020-08-28 [facility] 08-28 16:54:00 10:30:00 null F 2020-08-28 [facility] 08-28 16:54:00 10:30:00 null F 2020-08-28 [facility] 08-28 16:54:00 10:30:00 null F 2020-08-28 [facility] 08-28 16:54:00 10:30:00 null F 2020-08-28 [facility] 08-28 16:54:00 10:30:00 null F 2020-08-28 [facility] 08-28 16:54:00 10:30:00 null F 2020-08-28 [facility] 08-28 16:54:00 10:30:00 null F 2020-08-28 [facility] 08-28 16:54:00 10:30:00 null F 2020-08-28 [facility] 08-28 16:54:00 10:30:00 null F 2020-08-28 [facility] 08-28 16:54:00 10:30:00 null F 2020-08-28 [facility] 08-28 16:54:00 10:30:00 facility observation status value reference units lab abnor mal line range code notes [facility] P GenericCompos [facility] ite[CXP^CULTUR E IN PROGRESS. RESULTS TO FOLLOW.] [facility] F [facility] ite[P1050^10-5 0,000 COLONIES/ML Polymicrobial growth including] [facility] F [facility] ite[P1050^cont amination.] [facility] F GenericComposi [facility] te[P1050^poten tial pathogens. This is suggestive of skin or other] [facility] F NEGATIVE NEGATIVE Medical Center [facility] F CLOUDY CLEAR [facility] F YELLOW unknown URINE [facility] Center R ANDOM [facility] F INDICATED unknown [facility] F NEGATIVE NEGATIVE mg/dL [facility] F TRACE NEGATIVE mg/dL [facility] F TRACE NEGATIVE A [facility] F INDICATED unknown [facility] F NEGATIVE NEGATIVE [facility] F SMALL NEGATIVE A [facility] F 6.0 5.0-7.5 PH [facility] F NEGATIVE NEGATIVE mg/dL [facility] F >=1.030 1.002-1.0 A [facility] 30 [facility] F 0.2 (NORMAL) [facility]ORMAL [facility] dL test status date ordered by attending specimen bri e null F 2020-08-28 [facility] 08-28 16:54:00 10:30:00 null F 2020-08-28 [facility] 08-28 16:54:00 10:30:00 null F 2020-08-28 [facility] 08-28 16:54:00 10:30:00 null F 2020-08-28 [facility] 08-28 16:54:00 10:30:00 null F 2020-08-28 [facility] 08-28 16:54:00 10:30:00 facility observation status value reference units lab abnor mal line range code notes [facility] F Marked unknown /LPF [facility] F None None Seen /HPF [facility] Center Seen [facility] F 0-5 0-5 /HPF [facility] F NONE [facility] SEEN [facility] F 0-3 0-5 /HPF URINE [facility] Center R ANDOM test status date ordered by attending specimen bri e BILIRUBIN_URINE unknown 2020-08-28 unknown unknown unknow n 00:00:00 CLARITY_URINE unknown 2020-08-28 unknown unknown unknown 00:00:00 COLOR_URINE unknown 2020-08-28 unknown unknown unknown 00:00:00 GLUCOSE_URINE_UA unknown 2020-08-28 unknown unknown unkno wn _ 00:00:00 KETONES_URINE_UA unknown 2020-08-28 unknown unknown unkno wn _ 00:00:00 LEUKOCYTE_ESTERA unknown 2020-08-28 unknown unknown unkno wn SE_URINE 00:00:00 NITRITE_URINE unknown 2020-08-28 unknown unknown unknown 00:00:00 PH_URINE unknown 2020-08-28 unknown unknown unknown 00:00:00 T unknown 2020-08-28 unknown unknown unknown 00:00:00 T unknown 2020-08-28 unknown unknown unknown 00:00:00 T unknown 2020-08-28 unknown unknown unknown 00:00:00 T unknown 2020-08-28 unknown unknown unknown 00:00:00 T unknown 2020-08-28 unknown unknown unknown 00:00:00 T unknown 2020-08-28 unknown unknown unknown 00:00:00 T unknown 2020-08-28 unknown unknown unknown 00:00:00 T unknown 2020-08-28 unknown unknown unknown 00:00:00 T unknown 2020-08-28 unknown unknown unknown 00:00:00 T unknown 2020-08-28 unknown unknown unknown 00:00:00 T unknown 2020-08-28 unknown unknown unknown 00:00:00 SPECIFIC_GRAVITY unknown 2020-08-28 unknown unknown unkno wn _URINE 00:00:00 UROBILINOGEN_URI unknown 2020-08-28 unknown unknown unkno wn NE 00:00:00 WBC_URINE unknown 2020-08-28 unknown unknown unknown 00:00:00 WBC_urine_on_mic unknown 2020-08-28 unknown unknown unkno wn roscopy 00:00:00 Urine_HCG_Lot_Nu unknown 2020-08-28 unknown unknown unkno wn mber_CLIA_Waived_ 00:00:00 Urine_HCG_Exp_Da unknown 2020-08-28 unknown unknown unkno wn te_CLIA_Waived_ 00:00:00 Urine_HCG_QC_Res unknown 2020-08-28 unknown unknown unkno wn ult_CLIA_Waived_ 00:00:00 Choriogonadotrop unknown 2020-08-28 unknown unknown unkno wn in_pregnancy_test 00:00:00 _Presence_in_Urin e Glucose_Mass_vol unknown 2020-08-28 unknown unknown unkno wn ume_in_Urine 00:00:00 human_chorionic_ unknown 2020-08-28 unknown unknown unkno wn gonadotropin_urin 00:00:00 e_qualitative_uri ne_pregnancy_test _ urine_color unknown 2020-08-28 unknown unknown unknown 00:00:00 bilirubin_urine unknown 2020-08-28 unknown unknown unknow n 00:00:00 ketones_urine_by unknown 2020-08-28 unknown unknown unkno wn _test_strip 00:00:00 nitrite_urine_se unknown 2020-08-28 unknown unknown unkno wn miquantitative 00:00:00 specific_gravity unknown 2020-08-28 unknown unknown unkno wn _urine 00:00:00 urobilinogen_uri unknown 2020-08-28 unknown unknown unkno wn ne_semiquantitati 00:00:00 ve_dipstick_ leukocyte_estera unknown 2020-08-28 unknown unknown unkno wn se_urine_by_dipst 00:00:00 ick glucose_urine unknown 2020-08-28 unknown unknown unknown 00:00:00 Herpes_Simplex_V unknown 2020-08-28 unknown unknown unkno wn irus_Genital 00:00:00 urinalysis_routi unknown 2020-08-28 unknown unknown unkno wn ne 00:00:00 culture_status unknown 2020-08-28 unknown unknown unknown 00:00:00 pH_study_of_acid unknown 2020-08-28 unknown unknown unkno wn ity 00:00:00 clarity_urine_po unknown 2020-08-28 unknown unknown unkno wn int 00:00:00 Bilirubin.total_ unknown 2020-08-28 unknown unknown unkno wn Presence_in_Urine 00:00:00 _by_Test_strip Color_of_Urine unknown 2020-08-28 unknown unknown unknown 00:00:00 Ketones_Mass_vol unknown 2020-08-28 unknown unknown unkno wn ume_in_Urine_by_T 00:00:00 est_strip Leukocyte_estera unknown 2020-08-28 unknown unknown unkno wn se_Presence_in_Ur 00:00:00 ine_by_Test_strip Nitrite_Presence unknown 2020-08-28 unknown unknown unkno wn _in_Urine_by_Test 00:00:00 _strip Specific_gravity unknown 2020-08-28 unknown unknown unkno wn _of_Urine_by_Test 00:00:00 _strip Urobilinogen_Pre unknown 2020-08-28 unknown unknown unkno wn sence_in_Urine_by 00:00:00 _Test_strip WBC_urine_on_mic unknown 2020-08-28 unknown unknown unkno wn roscopy 00:00:00 pregnancy_test_d unknown 2020-08-28 unknown unknown unkno wn ate 00:00:00 Urine_HCG_Lot_Nu unknown 2020-08-28 unknown unknown unkno wn mber_CLIA_Waived_ 00:00:00 Urine_HCG_Exp_Da unknown 2020-08-28 unknown unknown unkno wn te_CLIA_Waived_ 00:00:00 Urine_HCG_QC_Res unknown 2020-08-28 unknown unknown unkno wn ult_CLIA_Waived_ 00:00:00 Choriogonadotrop unknown 2020-08-28 unknown unknown unkno wn in_pregnancy_test 00:00:00 _Presence_in_Urin e human_chorionic_ unknown 2020-08-28 unknown unknown unkno wn gonadotropin_urin 00:00:00 e_qualitative_uri ne_pregnancy_test _ Herpes_Simplex_V unknown 2020-08-28 unknown unknown unkno wn irus_Genital 00:00:00 urinalysis_routi unknown 2020-08-28 unknown unknown unkno wn ne 00:00:00 culture_status unknown 2020-08-28 unknown unknown unknown 00:00:00 pregnancy_test_d unknown 2020-08-28 unknown unknown unkno wn ate 00:00:00 facility observation status value reference units lab code abn ormal line range notes [facility] BILIRUBIN_U unknown NEGATIVE unknown UBIL unknown unknown [facility] RINE CPV RHC [facility] CLARITY_URI unknown CLOUDY unknown UCLAR u nknown unknown [facility] NE CPV RHC [facility] COLOR_URINE unknown YELLOW unknown UCOL u nknown unknown [facility] CPV RHC [facility] GLUCOSE_URI unknown NEGATIVE unknown UGLUC unknown unknown [facility] NE_UA_ mg/dL CPV RHC [facility] KETONES_URI unknown TRACE unknown UKET u nknown unknown [facility] NE_UA_ CPV RHC [facility] LEUKOCYTE_E unknown TRACE unknown ULEUK u nknown unknown [facility] STERASE_URIN CPV RHC E [facility] NITRITE_URI unknown NEGATIVE unknown UNITRIT E unknown unknown [facility] NE CPV RHC [facility] PH_URINE unknown 6.0 unknown UPH unkn own unknown [facility] CPV RHC [facility] T unknown NEGATIVE unknown UR_BILI unk nown unknown [facility] CPV RHC [facility] T unknown CLOUDY unknown UR_CLARI unkn own unknown [facility] TY CPV RHC [facility] T unknown YELLOW unknown UR_COLOR unkn own unknown [facility] CPV RHC [facility] T unknown NEGATIVE unknown UR_GLU unkn own unknown [facility] mg/dL CPV RHC [facility] T unknown TRACE unknown UR_KETO_ unkn own unknown [facility] UA_ CPV RHC [facility] T unknown TRACE unknown UR_LEU_E unkn own unknown [facility] STERASE CPV RHC [facility] T unknown NEGATIVE unknown UR_NIT unkn own unknown [facility] CPV RHC [facility] T unknown 6.0 unknown UR_PH unknow n unknown [facility] CPV RHC [facility] T unknown >=1.030 unknown UR_SG unkno wn unknown [facility] CPV RHC [facility] T unknown 0.2 unknown UR_URO unknow n unknown [facility] (NORMAL) CPV RHC [facility] T unknown 0-3 /HPF unknown UR_WBC unkn own unknown [facility] CPV RHC [facility] SPECIFIC_GR unknown >=1.030 unknown USG unknown unknown [facility] AVITY_URINE CPV RHC [facility] UROBILINOGE unknown 0.2 unknown UUROBIL unknown unknown [facility] N_URINE (NORMAL) CPV RHC [facility] WBC_URINE unknown 0-3 /HPF unknown UWBC u nknown unknown [facility] CPV RHC [facility] WBC_urine_o unknown 0-3 /HPF unknown _1016 unknown unknown [facility] n_microscopy CPV RHC [facility] Urine_HCG_L unknown 37569 unknown _[id number] unknown unknown [facility] ot_Number_CL CPV RHC IA_Waived_ [facility] Urine_HCG_E unknown 12/19/19 unknown _[id number] unknown unknown [facility] xp_Date_CLIA 22 CPV RHC _Waived_ [facility] Urine_HCG_Q unknown Yes unknown _[id number] unknown unknown [facility] C_Result_CLI CPV RHC A_Waived_ [facility] Choriogonad unknown Positive unknown _6- unknown unknown [facility] otropin_preg CPV RHC nancy_test_P resence_in_U rine [facility] Glucose_Mas unknown NEGATIVE unknown _2350-7 unknown unknown [facility] s_volume_in_ mg/dL CPV RHC Urine [facility] human_chori unknown Positive unknown _2578 unknown unknown [facility] onic_gonadot CPV RHC ropin_urine_ qualitative_ urine_pregna ncy_test_ [facility] urine_color unknown YELLOW unknown _2751 u nknown unknown [facility] CPV RHC [facility] bilirubin_u unknown NEGATIVE unknown _319 unknown unknown [facility] rine [facility]PV RHC [facility] ketones_uri unknown TRACE unknown _322 u nknown unknown [facility] ne_by_test_s CPV R[facility] trip [facility] nitrite_uri unknown NEGATIVE unknown _323 unknown unknown [facility] ne_semiquant CPV RHC itative [facility] specific_gr unknown >=1.030 unknown _325 unknown unknown [facility] avity_urine CPV RHC [facility] urobilinoge unknown 0.2 unknown _326 u nknown unknown [facility] n_urine_semi (NORMAL) CPV RHC quantitative _dipstick_ [facility] leukocyte_e unknown TRACE unknown _327 u nknown unknown [facility] sterase_urin [facility]PV R[facility] e_by_dipstic k [facility] glucose_uri unknown NEGATIVE unknown _3369 unknown unknown [facility] ne mg/dL [facility] Herpes_Simp unknown no unknown _4258 u nknown unknown [facility] lex_Virus_Ge [facility] nital [facility] urinalysis_ unknown Random unknown _47 u nknown unknown [facility] routine OB [facility] culture_sta unknown Yes unknown _51015 u nknown unknown [facility] tus [facility] pH_study_of unknown 6.0 unknown _51641 u nknown unknown [facility] _acidity [facility] clarity_uri unknown CLOUDY unknown _5589 u nknown unknown [facility] ne_point [facility] Bilirubin.t unknown NEGATIVE unknown _5770-3 unknown unknown [facility] otal_Presenc CPV R[facility] e_in_Urine_b y_Test_strip [facility] Color_of_Ur unknown YELLOW unknown _5778-6 unknown unknown [facility] ine [facility] Ketones_Mas unknown TRACE unknown _5797-6 unknown unknown [facility] s_volume_in_ CPV R[facility] Urine_by_Tes t_strip [facility] Leukocyte_e unknown TRACE unknown _5799-2 unknown unknown [facility] sterase_Pres [facility]PV R[facility] ence_in_Urin e_by_Test_st rip [facility] Nitrite_Pre unknown NEGATIVE unknown _5802-4 unknown unknown [facility] sence_in_Uri [facility] ne_by_Test_s trip [facility] Specific_gr unknown >=1.030 unknown _5811-5 unknown unknown [facility] avity_of_Uri [facility] ne_by_Test_s trip [facility] Urobilinoge unknown 0.2 unknown _5818-0 unknown unknown [facility] n_Presence_i (NORMAL) CPV R[facility] n_Urine_by_T est_strip [facility] WBC_urine_o unknown 0-3 /HPF unknown _5821-4 unknown unknown [facility] n_microscopy CPV RHC [facility] pregnancy_t unknown 08/25/19 unknown _6707 unknown unknown [facility] est_date 21 CPV RHC [facility] Urine_HCG_L unknown 42584 unknown _114940 unknown unknown [facility] ot_Number_CL [facility]PV R[facility] IA_Waived_ [facility] Urine_HCG_E unknown 12/19/19 unknown _[id number] unknown unknown [facility] xp_Date_CLIA 22 CPV RHC _Waived_ [facility] Urine_HCG_Q unknown Yes unknown _[id number] unknown unknown [facility] C_Result_CLI [facility]PV R[facility] A_Waived_ [facility] Choriogonad unknown Positive unknown _2105- unknown unknown [facility] otropin_preg [facility]PV R[facility] nancy_test_P resence_in_U rine [facility] human_chori unknown Positive unknown _2578 unknown unknown [facility] onic_gonadot [facility]PV R[facility] ropin_urine_ qualitative_ urine_pregna ncy_test_ [facility] Herpes_Simp unknown no unknown _4258 u nknown unknown [facility] lex_Virus_Ge [facility] nital [facility] urinalysis_ unknown Random unknown _47 u nknown unknown [facility] routine OB [facility] culture_sta unknown Yes unknown _51015 u nknown unknown [facility] tus [facility]PV R[facility] pregnancy_t unknown 08/25/19 unknown _6707 unknown unknown [facility] est_date 21 CPV RHC Social History date description facility 2020-08-28 00:00:00 Never smoker [facility] Social History date description facility 2020-08-28 00:00:00 Never smoker [facility] date description facility [id number]
--- NOTE | 2020-09-02 08:37 | Ultrasound Report ---
PROCEDURE: OB First Trimester w/TV INDICATIONS: POSITIVE TEST OUTSIDE/PRIOR DATING DATA: Last menstrual period (LMP): Not available. LMP-based estimated date of delivery (LYDIA): Not available. First dating scan (date and location): This study. Estimated date of delivery (LYDIA) from first dating scan: A definite viable intrauterine gestation is not seen.. TECHNIQUE: Real-time scanning was performed of the fetus and maternal pelvic organs, with image documentation. Endovaginal scanning was also performed to better visualize the fetus and maternal ovaries. COMPARISON: None FINDINGS: Embryo: No definite bile intrauterine gestation is seen. What appears to be a small intrauterine ges tational sac is identified in the fundus area, but a internal yolk sac is not identified. The mean sa c diameter is 6 mm, which would correlate with a gestational age of 5 weeks 2 days, +/- .. The appear ance .7 days, if this in fact represents early evidence of a viable gestation. Measurement variability in dating: +/- 4 weeks by LMP, +/- 7 days by mean sac diameter (use before 6 weeks gestation if crown-rump length not able to be measured), +/- 5 days by crown-rump length (6-12 weeks gestation). Maternal organs: Ovaries appear normal for presumed status. However, quantitative beta hCG values not available for review. Limited images through the kidneys demonstrate no hydronephrosis. IMPRESSION: What appears to be likely an intrauterine gestational sac has a mean sac diameter that correlates wit h a gestational age estimate of 5 weeks 2 days +/- 7 days. A pole is not currently seen, viable gestation has not yet been established. The saclike structure could represent a "pseudogestational s ac", and for this reason correlation with quantitative beta hCG is recommended and also follow-up OB ultrasound in 7-10 days likely should be obtained. Reviewed by: Liang Vasquez MD on 09/02/2020 8:36 AM PST Approved by: Liang Vasquez MD on 09/02/2020 8:36 AM PST Station ID: [id number]
== END 2020-09-02 06:44 | disposition home or self-care (01) ==
LOC: DI 06:43
PROVIDERS: ATTEND Advanced Practice Midwife
DX: Z32.01 Encounter for pregnancy test, result positive (principal)

== ENCOUNTER 2020-09-10 14:59 | Outpatient (CLI) | payer MEDICAID ==
--- NOTE | 2020-09-11 17:14 | Ultrasound Report ---
PROCEDURE: OB First Trimester w/TV INDICATIONS: POSITIVE TEST OUTSIDE/PRIOR DATING DATA: Last menstrual period (LMP): Not available. LMP-based estimated date of delivery (LYDIA): Not available. First dating scan (date and location): 09/02/2020 and now 09/10/2020. Estimated date of delivery (LYDIA) from first dating scan: 05/05/2021, +/- 5 days. TECHNIQUE: Real-time scanning was performed of the fetus and maternal pelvic organs, with image documentation. Endovaginal scanning was also performed to better visualize the fetus and maternal ovaries. COMPARISON: 09/02/2020 study which identified gestational sac but no intrauterine gestation at that t trena. FINDINGS: Embryo: There is a single living intrauterine gestation with crown-rump length 4 mm which correlates with a gestational age of 6 weeks 1 day, +/- 5 days. heart rate was identified at 108 bpm, exp ected in the setting of very early identifiable first trimester gestation. Measurement variability in dating: +/- 4 weeks by LMP, +/- 7 days by mean sac diameter (use before 6 weeks gestation if crown-rump length not able to be measured), +/- 5 days by crown-rump length (6-12 weeks gestation). Maternal organs: Ovaries appear normal. IMPRESSION: Very early first trimester gestation with heart rate identified at 108 bpm and with the current gesta tional age estimate at 6 weeks 1 day, with delivery date projected to be centered on 05/05/2021, +/- 5 days. Reviewed by: Liang Vasquez MD on 09/11/2020 5:12 PM PST Approved by: Liang Vasquez MD on 09/11/2020 5:12 PM PST Station ID: [id number]
== END 2020-09-10 15:00 | disposition home or self-care (01) ==
LOC: DI 14:59
PROVIDERS: ATTEND Advanced Practice Midwife
DX: Z32.01 Encounter for pregnancy test, result positive (principal)

== ENCOUNTER 2020-09-22 08:00 | Outpatient (CLI) | payer MEDICAID ==
[2020-09-22 21:59] LABS: TRICHOMONAS VAGINALIS DNA NEGATIVE (NEGATIVE)
== END 2020-09-22 23:59 | disposition home or self-care (01) ==
LOC: LAB 08:00
PROVIDERS: ATTEND Nurse Practitioner Obstetrics & Gynecology
DX: Z11.3 Encounter for screening for infections with a predominantly sexual mode of transmission (principal)
CPT/HCPCS: 87491; 87591; 87661

== ENCOUNTER 2020-10-13 10:51 | Outpatient (CLI) | payer MEDICAID ==
[2020-10-13 11:11] LABS: BASOPHILS % (AUTO) 0.1 %; EOSINOPHILS % (AUTO) 0.1 %; LYMPHOCYTES # (AUTO) 1.3 10^3/uL (1.5-3.5); LYMPHOCYTES % (AUTO) 16.8 %; MEAN CORPUSCULAR HEMOGLOBIN 30.7 pg (27.0-31.0); MEAN CORPUSCULAR HGB CONC 32.9 g/dL (32.0-36.0); MEAN CORPUSCULAR VOLUME 93.4 fL (81.0-99.0); MEAN PLATELET VOLUME 11.6 fL (7.9-10.8); MONOCYTES # (AUTO) 0.5 10^3/uL (0.0-1.0); MONOCYTES % (AUTO) 6.3 %; NEUTROPHILS % (AUTO) 76.4 %; PLT - PLATELET COUNT 187 10^3/uL (130-450); RED BLOOD COUNT 3.91 10^6/uL (4.20-5.40); RED CELL DISTRIBUTION WIDTH 12.4 % (12.0-15.0); WHITE BLOOD COUNT 7.9 x10^3/uL (4.8-10.8)
[2020-10-13 11:15] LABS: VBG PH 7.344 (7.31-7.41)
[2020-10-13 11:29] LABS: ALBUMIN 4.4 g/dL (3.2-5.5); ALBUMIN/GLOBULIN RATIO 1.5 (1.0-2.2); BILIRUBIN,TOTAL 0.3 mg/dL (0.2-1.0); CALCIUM 9.4 mg/dL (8.5-10.3); CREATININE 0.3 mg/dL (0.4-1.0); TOTAL PROTEIN 7.4 g/dL (6.7-8.2)
[2020-10-14 12:31] LABS: HEPATITIS B SURFACE ANTIGEN NON-REACTIVE (NON-REACTIVE); HEPATITIS C ANTIBODY NON-REACTIVE (NON-REACTIVE)
[2020-10-14 13:47] LABS: HIV AG/AB 4TH GEN NON-REACTIVE (NON-REACTIVE)
== END 2020-10-13 10:52 | disposition home or self-care (01) ==
LOC: LAB 10:51
PROVIDERS: ATTEND Nurse Practitioner Obstetrics & Gynecology
DX: O99.891 Other specified diseases and conditions complicating pregnancy (principal); R63.6 Underweight; Z36.89 Encounter for other specified antenatal screening
CPT/HCPCS: 36415; 80053; 82306; 82330; 82607; 82746; 83540; 84466; 85025; 86592; 86593; 86762; 86780; 86787; 86803; 86850; 86900; 86901; 87340; 87389

== ENCOUNTER 2020-10-26 07:00 | Outpatient (CLI) | payer MEDICAID ==
[2020-10-27 02:23] LABS: CHLAMYDIA TRACHOMATIS DNA NEGATIVE (NEGATIVE); NEISSERIA GONORRHOEAE DNA NEGATIVE (NEGATIVE); TRICHOMONAS VAGINALIS DNA NEGATIVE (NEGATIVE)
== END 2020-10-26 23:59 | disposition home or self-care (01) ==
LOC: LAB.R 07:00
PROVIDERS: ATTEND Advanced Practice Midwife
DX: Z11.3 Encounter for screening for infections with a predominantly sexual mode of transmission (principal)
CPT/HCPCS: 87491; 87591; 87661

== ENCOUNTER 2020-12-01 12:37 | Outpatient (CLI) | payer MEDICAID ==
[2020-12-01 13:05] LABS: ALBUMIN 3.7 g/dL (3.2-5.5); ALBUMIN/GLOBULIN RATIO 1.3 (1.0-2.2); BILIRUBIN,TOTAL 0.5 mg/dL (0.2-1.0); CREATININE 0.3 mg/dL (0.4-1.0); POTASSIUM 3.7 mmol/L (3.5-5.0); TOTAL PROTEIN 6.6 g/dL (6.7-8.2)
[2020-12-01 13:21] LABS: THYROID STIMULATING HORMONE 0.76 uIU/mL (0.34-5.60)
[2020-12-01 14:58] LABS: FERRITIN 13.5 ng/mL (11.0-306.8)
== END 2020-12-01 12:38 | disposition home or self-care (01) ==
LOC: LAB 12:37
PROVIDERS: ATTEND Advanced Practice Midwife
DX: R63.6 Underweight (principal)
CPT/HCPCS: 36415; 80051; 80053; 82728; 84443

== ENCOUNTER 2021-02-05 14:17 | Outpatient (CLI) | payer MEDICAID ==
[2021-02-05 15:41] LABS: HCT - HEMATOCRIT 31.4 % (37.0-47.0); HGB - HEMOGLOBIN 10.4 g/dL (12.0-16.0); MEAN CORPUSCULAR HEMOGLOBIN 31.9 pg (27.0-31.0); MEAN CORPUSCULAR HGB CONC 33.1 g/dL (32.0-36.0); MEAN CORPUSCULAR VOLUME 96.3 fL (81.0-99.0); MEAN PLATELET VOLUME 11.3 fL (7.9-10.8); RED BLOOD COUNT 3.26 10^6/uL (4.20-5.40); RED CELL DISTRIBUTION WIDTH 12.1 % (12.0-15.0); WHITE BLOOD COUNT 8.3 x10^3/uL (4.8-10.8)
== END 2021-02-05 14:18 | disposition home or self-care (01) ==
LOC: LAB 14:17
PROVIDERS: ATTEND Nurse Practitioner Obstetrics & Gynecology
DX: O09.899 Supervision of other high risk pregnancies, unspecified trimester (principal); O99.891 Other specified diseases and conditions complicating pregnancy; R63.6 Underweight
CPT/HCPCS: 36415; 82950; 85027

== ENCOUNTER 2021-02-19 11:15 | Outpatient (CLI) | payer MEDICAID ==
[2021-02-19 11:37] VITALS: BP 125/72
[2021-02-19] MEDS ORDERED: ACETAMINOPHEN 500 MG TABLET PO ONE (12:00)
[2021-02-19 12:05] LABS: BASOPHILS % (AUTO) 0.1 %; HCT - HEMATOCRIT 32.7 % (37.0-47.0); HGB - HEMOGLOBIN 10.9 g/dL (12.0-16.0); LYMPHOCYTES # (AUTO) 0.2 10^3/uL (1.5-3.5); LYMPHOCYTES % (AUTO) 2.9 %; MEAN CORPUSCULAR HEMOGLOBIN 31.6 pg (27.0-31.0); MEAN CORPUSCULAR HGB CONC 33.3 g/dL (32.0-36.0); MEAN CORPUSCULAR VOLUME 94.8 fL (81.0-99.0); MEAN PLATELET VOLUME 11.2 fL (7.9-10.8); MONOCYTES # (AUTO) 0.4 10^3/uL (0.0-1.0); MONOCYTES % (AUTO) 5.1 %; NEUTROPHILS % (AUTO) 91.5 %; PLT - PLATELET COUNT 131 10^3/uL (130-450); RED BLOOD COUNT 3.45 10^6/uL (4.20-5.40); RED CELL DISTRIBUTION WIDTH 12.5 % (12.0-15.0); WHITE BLOOD COUNT 7.6 x10^3/uL (4.8-10.8)
[2021-02-19 12:11] LABS: RUPTURE OF MEMBRANES PLUS NEGATIVE (NEGATIVE)
[2021-02-19 12:19] LABS: ALBUMIN 3.5 g/dL (3.2-5.5); ALBUMIN/GLOBULIN RATIO 1.1 (1.0-2.2); ALKALINE PHOSPHATASE 74 IU/L (42-121); ALT ALANINE AMINOTRANSFERASE 17 IU/L (10-60); AST ASPARTATE AMINOTRANSFERASE 20 IU/L (10-42); BILIRUBIN,TOTAL 0.8 mg/dL (0.2-1.0); BUN - BLOOD UREA NITROGEN < 5 mg/dL (6-20); CALCIUM 8.6 mg/dL (8.5-10.3); CARBON DIOXIDE - CO2 23 mmol/L (21-32); CHLORIDE 99 mmol/L (101-111); CREATININE 0.3 mg/dL (0.4-1.0); GFR - MDRD 273 (>89); GLUCOSE 99 mg/dL (70-100); POTASSIUM 3.7 mmol/L (3.5-5.0); SODIUM 133 mmol/L (135-145); TOTAL PROTEIN 6.8 g/dL (6.7-8.2)
--- NOTE | 2021-02-19 12:31 | PROCEDURE REPORT ---
- HPI Diagnosis/Indication for NST: Other ( contractions) Current EDU 05/05/21 Gestation 29 Weeks and 2 Days 2 Para 1 Vital Signs Temperature 37.5 C 02/19/21 11:29 Heart Rate 129 H 02/19/21 11:29 Respiratory Rate 16 02/19/21 11:29 Blood Pressure 125/72 02/19/21 11:29 O2 Saturation 99 02/19/21 11:29 Temperature 37.5 C 02/19/21 11:29 Heart Rate 129 H 02/19/21 11:29 Respiratory Rate 16 02/19/21 11:29 Blood Pressure 125/72 02/19/21 11:29 O2 Saturation 99 02/19/21 11:29 - NST Procedure NST without VAS - Results and Plan Findings/Impression: base line was 160 on presentation. with time decreased to 150'5 with accelaerations. few contractions Identification: Patient is a [id number] is . Her last delivery was 2016. Patient's EDC is 05 May this was makes her 29 weeks and 3 days. Chief complaint contractions history present illness patient states that roughly 2:00 this morning she developed contractions which were relatively strong. These were intermittent came and went so she presents now with contractions. She denies spontaneous rupture of membranes. She does Have a history of receiving her Tdap shot yesterday. She does complain of some flulike symptoms. Physical examination heart regular rate and rhythm lung gutierrez are clear back no spinal CVA tenderness uterus is gravid nontender in any portion at this time. Her pelvic examination shows a cervix which is closed long posterior and floating. GBS was done FFM was obtained which is negative she also has a ROM plus which is currently pending however her nitrazine was noted to be negative and there is no pooling. Laboratories show a normal white count.Her chemistries show a mild hyponatremia as well as kalemia. Impression number one 25-year-old G2, P1 at 29 weeks EGA #2 flulike symptoms probably secondary to her Tdap shot #3 hyponatremia as well as kalemia. Plan we will have patient include more salty food in her diet. We will have her increase her fluids. We will have her remain at pelvic rest for the next 2 weeks. Currently I am awaiting the group B strep culture as well as the BV test. Urine is also pending.Patient may utilize Tylenol for aches and pains of flu. Plan: Plan we will have patient include more salty food in her diet. We will have her increase her fluids. We will have her remain at pelvic rest for the next 2 weeks. Currently I am awaiting the group B strep culture as well as the BV test. Urine is also pending.
[2021-02-19 12:35] LABS: BILIRUBIN,URINE NEGATIVE (NEGATIVE); GLUCOSE, URINE (UA) NEGATIVE (NEGATIVE); KETONES,URINE (UA) >=80 mg/dL (NEGATIVE); LEUKOCYTE ESTERASE, URINE TRACE (NEGATIVE); NITRITE,URINE NEGATIVE (NEGATIVE); OCCULT BLOOD,URINE MODERATE (NEGATIVE); PH,URINE 6.5 PH (5.0-7.5); PROTEIN,URINE NEGATIVE (NEGATIVE); UROBILINOGEN,URINE 0.2 (NORMAL) E.U./dL (NORMAL)
[2021-02-19 12:36] LABS: CLARITY,URINE CLEAR (CLEAR)
[2021-02-19 12:46] LABS: BACTERIA,URINE Few /HPF (None Seen); MUCUS,URINE Few Strands; SQUAMOUS EPITHELIAL CELL,UR FEW Squamous (<= Few)
[2021-02-19 13:44] LABS: BACTERIAL VAGINOSIS DNA NEGATIVE (NEGATIVE); CANDIDA GLABRATA DNA NEGATIVE (NEGATIVE); CANDIDA GROUP DNA NEGATIVE (NEGATIVE); CANDIDA KRUSEI DNA NEGATIVE (NEGATIVE); TRICHOMONAS VAGINALIS DNA NEGATIVE (NEGATIVE)
== END 2021-02-19 12:55 | disposition home or self-care (01) ==
LOC: WFO 11:15 → FBP 11:16 → WFO 12:55
PROVIDERS: ATTEND Obstetrics & Gynecology
DX: O99.283 Endocrine, nutritional and metabolic diseases complicating pregnancy, third trimester (principal); E87.1 Hypo-osmolality and hyponatremia; Z3A.29 29 weeks gestation of pregnancy
CPT/HCPCS: 80053; 81001; 82731; 84112; 85025; 87086; 87481; 87661; 87797; 87801; 99215; A9270

== ENCOUNTER 2021-03-04 17:52 | Outpatient (CLI) | payer MEDICAID ==
[2021-03-04 18:51] VITALS: BP 120/75
[2021-03-04 18:51] LABS: BILIRUBIN,URINE NEGATIVE (NEGATIVE); GLUCOSE, URINE (UA) NEGATIVE (NEGATIVE); KETONES,URINE (UA) TRACE mg/dL (NEGATIVE); LEUKOCYTE ESTERASE, URINE SMALL (NEGATIVE); NITRITE,URINE NEGATIVE (NEGATIVE); OCCULT BLOOD,URINE NEGATIVE (NEGATIVE); PROTEIN,URINE NEGATIVE (NEGATIVE); UROBILINOGEN,URINE 0.2 (NORMAL) E.U./dL (NORMAL)
[2021-03-04 18:58] LABS: BACTERIA,URINE Rare /HPF (None Seen); CLARITY,URINE CLEAR (CLEAR); MUCUS,URINE Few Strands; RBC,URINE 0-5 /HPF (0-5); SQUAMOUS EPITHELIAL CELL,UR FEW Squamous (<= Few); WBC,URINE 0-3 /HPF (0-5)
--- NOTE | 2021-03-04 20:15 | PROVIDER PROGRESS NOTE ---
- HPI Chief Complaint: Labor Current : Current EDU 05/05/21 Gestation 31 Weeks and 1 Days 2 Para 1 Vital Signs Temperature 36.3 C L 03/04/21 18:00 Heart Rate 100 03/04/21 18:00 Respiratory Rate 20 03/04/21 18:00 Blood Pressure 120/75 03/04/21 18:00 O2 Saturation 98 03/04/21 18:00 Temperature 36.3 C L 03/04/21 18:41 Heart Rate 100 03/04/21 18:00 Respiratory Rate 20 03/04/21 18:00 Blood Pressure 120/75 03/04/21 18:00 O2 Saturation 98 03/04/21 18:00 - Procedures OB Procedure Performed: NST Diagnosis/Indication for NST: labor NST Procedure: NST Procedure Start Date 03/04/21 Start Time 17:59 Stop Time 19:05 Vibroacoustic Stimulation Used No Patient States Movement Yes - Plan Plan: Pt evaluated [id number] S:Nereyda presents to [facility] with c/o contractions which began this morning at approximately 1000. She states she presented for similar concerns 2 weeks ago and these contractions seem slightly more uncomfortable than previously. She reports +FM. She denies vaginal bleeding or leakage of fluid. She denies urinary symptoms and reports normal bowel movements/denies constipation. She has not had intercourse in more than 24 hours. She reports increased vaginal discharge that is occasional light brown/fernandez in color but denies itching, burning, or irritation and denies foul odor. O: NST performed 03/04/2021 NST read 03/04/2021 NST reactive. FHR baseline, moderate variability, + 10x10 accels, no decels Tocometry reveals mild uterine irritability without obvious contractions. Appreciable contractions are not palpable. UA collected - sending for culture AFFIRM -pending GC/CT pending FFN positive (positive 02/19/2021 as well but had recently had intercourse). Limited bedside ultrasound for transvaginal cervical length assessment performed. Cervix is long and closed with preliminary measurement 3.9cm. Assessment: 25yo @ 31.1wks gestation Uterine irritability Plan: Pt discharged home with precautions. Reviewed PTL precautions. Encouraged increased fluid intake and rest. Will call with abnormal results of UA and vaginal swabs if treatment is indicated. Note provided to allow pt to sit at work as her current employer does not allow this - pt considering taking maternity leave early secondarily. Encouraged use of maternity support belt. Pt has emergency contact number. Pt verbalized understanding and agrees to above plan. She denies further questions or concerns at this time. FINAL DIAGNOSIS: False labor <37wks gestation
--- NOTE | 2021-03-04 20:45 | Ultrasound Report ---
PROCEDURE: OB Transvaginal INDICATIONS: Rule out PTL OUTSIDE/PRIOR DATING DATA: Last menstrual period (LMP): Not available. LMP-based estimated date of delivery (LYDIA): Not available. First dating scan (date and location): 09/10/2020. Estimated date of delivery (LYDIA) from first dating scan: 05/05/2021. The below data below was generated using the ultrasound LYDIA of 05/05/2021 TECHNIQUE: Real-time scanning was performed of the fetus, with image documentation. Endovaginal scanning: Performed COMPARISON: OB ultrasound, 09/10/2020. FINDINGS: A single living intrauterine gestation is present. Presentation: Cephalic Placenta: Placental position is posterior, without previa. Amniotic fluid index: 15.1 cm; largest pocket 5.4 cm. heart rate: 158 beats per minutes. Maternal cervical canal: Closed measuring 3.4 cm. Estimated gestational age from initial scan: 31 weeks 1 day. IMPRESSION: 1. A single living intrauterine gestation is present with the estimated gestational age 31 weeks 1 da y based on initial dating ultrasound. 2. Cervix is closed measuring 3.4 cm. Reviewed by: Jolanta Wolf MD on 03/04/2021 8:44 PM PDT Approved by: Jolanta Wolf MD on 03/04/2021 8:44 PM PDT Station ID: [id number]
[2021-03-04 21:27] LABS: CHLAMYDIA TRACHOMATIS DNA NEGATIVE (NEGATIVE); NEISSERIA GONORRHOEAE DNA NEGATIVE (NEGATIVE); TRICHOMONAS VAGINALIS DNA NEGATIVE (NEGATIVE)
[2021-03-04 22:31] LABS: BACTERIAL VAGINOSIS DNA INDETERMINATE ERROR (NEGATIVE); CANDIDA GLABRATA DNA INDETERMINATE ERROR (NEGATIVE); CANDIDA GROUP DNA INDETERMINATE ERROR (NEGATIVE); CANDIDA KRUSEI DNA INDETERMINATE ERROR (NEGATIVE); TRICHOMONAS VAGINALIS DNA INDETERMINATE ERROR (NEGATIVE)
== END 2021-03-04 20:15 | disposition home or self-care (01) ==
LOC: WFO 17:52 → EMS 17:52 → FBP 17:53 → EMS 20:15
PROVIDERS: ATTEND Nurse Practitioner Obstetrics & Gynecology
DX: O47.03 False labor before 37 completed weeks of gestation, third trimester (principal); Z3A.31 31 weeks gestation of pregnancy
CPT/HCPCS: 36415; 59025; 81001; 82731; 87086; 87491; 87591; 87661; 87801; 99214; 99215

== ENCOUNTER 2021-03-09 08:00 | Outpatient (CLI) | payer MEDICAID ==
[2021-03-09 21:52] LABS: BACTERIAL VAGINOSIS DNA POSITIVE (NEGATIVE); CANDIDA GLABRATA DNA NEGATIVE (NEGATIVE); CANDIDA GROUP DNA NEGATIVE (NEGATIVE); CANDIDA KRUSEI DNA NEGATIVE (NEGATIVE); TRICHOMONAS VAGINALIS DNA NEGATIVE (NEGATIVE)
== END 2021-03-09 23:59 | disposition home or self-care (01) ==
LOC: LAB.WC 08:00
PROVIDERS: ATTEND Nurse Practitioner Obstetrics & Gynecology
DX: N76.0 Acute vaginitis (principal)
CPT/HCPCS: 87661; 87801

== ENCOUNTER 2021-04-04 09:21 | Outpatient (CLI) | payer MEDICAID ==
--- NOTE | 2021-04-04 12:31 | Ultrasound Report ---
PROCEDURE: OB F/U or Repeat INDICATIONS: SUPERVISION OF HIGH RISK OUTSIDE/PRIOR DATING DATA: Last menstrual period (LMP): Unknown. LMP-based estimated date of delivery (LYDIA): None. First dating scan (date and location): 09/10/2020. Estimated date of delivery (LYDIA) from first dating scan: 05/05/2021. The below data below was generated using the LYDIA of 05/05/2021 TECHNIQUE: Real-time scanning was performed of the fetus, with image documentation and biometric measurements. Endovaginal scanning: None COMPARISON: 03/04/2021 FINDINGS: General: A single living intrauterine gestation is present. Presentation: Vertex Placenta: Placental position is posterior, without previa. Amniotic fluid index: 1.7 cm, normal for gestational age. heart rate: 153 beats per minute. Maternal cervical canal: Nonvisualized biometrics: Biparietal diameter: 8.8 cm, 35 week 4 day Head circumference: 31.0 cm, 34 week 4 day Abdominal circumference: 32.4 cm, 36 week 2 day Femur length: 6.7 cm, 34 week 3 day Estimated gestational age from initial scan: 35 week 4 day Composite gestational age from present scan: 35 week 2 day Estimated weight and percentile: 2706 g, 48th percentile Measurement variability in biometric dating: +/- 10 days from 12-20 weeks gestation, +/- 2 weeks from 20-30 weeks gestation, +/- 3 weeks at 30 weeks gestation or more. Other: Proximal and mid S/D ratio was 3.3 and 3.0 respectively. Normal is less than 3.5 IMPRESSION: Single live intrauterine consistent with 35 week 2 day gestation by current ultrasound Estimated weight 2706 g, 48th percentile Reviewed by: Bill Russo MD on 04/04/2021 11:30 AM TIMOTHY Approved by: Bill Russo MD on 04/04/2021 11:30 AM TIMOTHY Station ID: [id number]
== END 2021-04-04 09:22 | disposition home or self-care (01) ==
LOC: DI 09:21
PROVIDERS: ATTEND Advanced Practice Midwife
DX: O09.893 Supervision of other high risk pregnancies, third trimester (principal); Z3A.35 35 weeks gestation of pregnancy

== ENCOUNTER 2021-04-06 08:00 | Outpatient (CLI) | payer MEDICAID ==
[2021-04-06 23:24] LABS: CHLAMYDIA TRACHOMATIS DNA NEGATIVE (NEGATIVE); NEISSERIA GONORRHOEAE DNA NEGATIVE (NEGATIVE); TRICHOMONAS VAGINALIS DNA NEGATIVE (NEGATIVE)
== END 2021-04-06 23:59 | disposition home or self-care (01) ==
LOC: LAB 08:00
PROVIDERS: ATTEND Nurse Practitioner Obstetrics & Gynecology
DX: O09.899 Supervision of other high risk pregnancies, unspecified trimester (principal)
CPT/HCPCS: 87491; 87591; 87661; 87797

== ENCOUNTER 2021-04-06 09:49 | Outpatient (CLI) | payer MEDICAID ==
[2021-04-06 10:26] VITALS: BP 115/69
[2021-04-06 10:49] LABS: RUPTURE OF MEMBRANES PLUS NEGATIVE (NEGATIVE)
[2021-04-06 16:14] LABS: BACTERIAL VAGINOSIS DNA UNRESOLVED (NEGATIVE); CANDIDA GLABRATA DNA UNRESOLVED (NEGATIVE); CANDIDA GROUP DNA UNRESOLVED (NEGATIVE); CANDIDA KRUSEI DNA UNRESOLVED (NEGATIVE); TRICHOMONAS VAGINALIS DNA UNRESOLVED (NEGATIVE)
--- NOTE | 2021-04-06 22:25 | PROVIDER PROGRESS NOTE ---
- HPI Chief Complaint: Leakage of vaginal fluid Current : Current EDU 05/05/21 Gestation 35 Weeks and 6 Days 2 Para 1 Vital Signs Temperature 36.8 C 04/06/21 10:05 Heart Rate 88 04/06/21 10:05 Respiratory Rate 18 04/06/21 10:05 Blood Pressure 115/69 04/06/21 10:05 O2 Saturation 99 04/06/21 10:05 Temperature 36.8 C 04/06/21 10:29 Heart Rate 88 04/06/21 10:29 Respiratory Rate 18 04/06/21 10:29 Blood Pressure 115/69 04/06/21 10:29 O2 Saturation 99 04/06/21 10:29 - Procedures OB Procedure Performed: NST NST Procedure: NST Procedure Start Date 04/06/21 Start Time 10:02 Stop Time 10:22 Vibroacoustic Stimulation Used No Patient States Movement Yes - Plan Plan: Nereyda is a 25yo at 35.6wks gestation who presented to Labor and Delivery triage following a appointment where she revealed she has had leaking fluid since yesterday. She reports intermittent cramping O: ROM+ negative Affirm, GC/CT and GBS pending NST perfrom date: 04/05/2021 NST read date: 05/06/2021 Impression: reactive No significant uterine activity noted A: 25yo at 35.6wks with rule out rupture- negative P: Discharge to home Continue with routine care
== END 2021-04-06 11:55 | disposition home or self-care (01) ==
LOC: WFO 09:49 → FBP 09:53 → WFO 11:55
PROVIDERS: ATTEND Advanced Practice Midwife
DX: O99.891 Other specified diseases and conditions complicating pregnancy (principal); N89.8 Other specified noninflammatory disorders of vagina; Z3A.35 35 weeks gestation of pregnancy
CPT/HCPCS: 59025; 84112; 87661; 87801; 99213

== ENCOUNTER 2021-04-30 13:52 | Outpatient (CLI) | payer MEDICAID ==
--- NOTE | 2021-04-30 16:51 | Ultrasound Report ---
PROCEDURE: OB F/U or Repeat INDICATIONS: SUPERVISION OF HIGH RISK OUTSIDE/PRIOR DATING DATA: Last menstrual period (LMP): Unknown. LMP-based estimated date of delivery (LYDIA): Unknown. First dating scan (date and location): 09/10/2020. Estimated date of delivery (LYDIA) from first dating scan: 05/05/2021. The below data below was generated using the ultrasound LYDIA of 05/05/2021 TECHNIQUE: Real-time scanning was performed of the fetus, with image documentation and biometric measurements. COMPARISON: OB ultrasound 04/04/2021, 09/10/2020 FINDINGS: General: A single living intrauterine gestation is present. Presentation: Vertex Placenta: Placental position is posterior, without previa. Amniotic fluid index: 15.2 cm, within normal limits for gestational age. Largest pocket 6.9 cm. heart rate: 150 beats per minute. Maternal cervical canal: 5.3 cm long; normal length is 2.5 cm or more. biometrics: Biparietal diameter: 9.1 cm 36 weeks 5 days Head circumference: 32.3 cm 36 weeks 4 days Abdominal circumference: 34.1 cm 38 weeks 0 days Femur length: 7.7 cm 39 weeks 4 days Estimated gestational age from initial scan: 39 weeks 2 days Composite gestational age from present scan: 37 weeks 5 days Estimated weight and percentile: 3371 g 40th percentile compared to 48 percentile on 04/04/2021 Measurement variability in biometric dating: +/- 10 days from 12-20 weeks gestation, +/- 2 weeks from 20-30 weeks gestation, +/- 3 weeks at 30 weeks gestation or more. Other: Umbilical artery Doppler, 2.6, 2.6. IMPRESSION: 1. Single live intrauterine . 2. Estimated weight is at the 40th percentile compared to 48 on prior exam. There is been appro priate interval growth. Reviewed by: Sada Simmons MD on 04/30/2021 4:50 PM PDT Approved by: Sada Simmons MD on 04/30/2021 4:50 PM PDT Station ID: [id number]
== END 2021-04-30 13:53 | disposition home or self-care (01) ==
LOC: DI 13:52
PROVIDERS: ATTEND Advanced Practice Midwife
DX: O09.899 Supervision of other high risk pregnancies, unspecified trimester (principal); R63.6 Underweight; Z3A.39 39 weeks gestation of pregnancy

== ENCOUNTER 2021-05-02 10:16 | Outpatient (CLI) | payer MEDICAID ==
[2021-05-02 10:44] VITALS: BP 123/72
--- NOTE | 2021-05-02 20:04 | PROCEDURE REPORT ---
- HPI Diagnosis/Indication for NST: Other (Contractions) Current EDU 05/05/21 Gestation 39 Weeks and 4 Days 2 Para 1 Vital Signs Temperature 98.4 F 05/02/21 10:40 Heart Rate 101 H 05/02/21 10:40 Respiratory Rate 16 05/02/21 10:40 Blood Pressure 123/72 05/02/21 10:40 O2 Saturation 100 05/02/21 10:40 Temperature 98.4 F 05/02/21 10:40 Heart Rate 101 H 05/02/21 10:40 Respiratory Rate 16 05/02/21 10:40 Blood Pressure 123/72 05/02/21 10:40 O2 Saturation 100 05/02/21 10:40 - NST Procedure NST Procedure Start Date 05/02/21 Start Time 10:20 Stop Time 10:30 Vibroacoustic Stimulation Used No Patient States Movement Yes 25yo presented for Contractions to triage. Contractions were Irregular. Patient reports good movement. Patient denies SROM or vaginal bleeding. NST: FHT's baseline is 150 with moderate variability and accelerations that are 15X15. No decelerations. Contractions every 6-8minutes. Reactive NST.
== END 2021-05-02 12:29 | disposition home or self-care (01) ==
LOC: WFO 10:16 → FBP 10:17 → WFO 12:29
PROVIDERS: ATTEND Obstetrics & Gynecology
DX: O47.1 False labor at or after 37 completed weeks of gestation (principal); Z3A.39 39 weeks gestation of pregnancy
CPT/HCPCS: 59025; 99214

== ENCOUNTER 2021-05-02 17:59 | Inpatient (IN) | payer MEDICAID ==
[2021-05-02] MEDS ORDERED: SODIUM CHLORIDE FLUSH 0.9% 10 ML SYRINGE IVP PRN (19:29)
[2021-05-02] MEDS ORDERED: OXYTOCIN 10 UNIT/ML VIAL IM PRN (19:29)
[2021-05-02] MEDS ORDERED: miSOPROStoL 200 MCG TABLET BC PRN (19:29)
[2021-05-02] MEDS ORDERED: METHYLERGONOVINE 0.2 MG/ML VIAL IM PRN (19:29)
[2021-05-02] MEDS ORDERED: TRANEXAMIC ACID IN NACL 1,000 MG/100 ML BAG IV PRN (19:29)
[2021-05-02] MEDS ORDERED: OXYTOCIN/SODIUM CHLORIDE 500 ML IV PRN (19:29)
[2021-05-02] MEDS ORDERED: LIDOCAINE-MPF 1% 30 ML VIAL ID PRN (19:29)
[2021-05-02] MEDS ORDERED: CARBOPROST TROMETHAMINE 250 MCG/ML AMP IM PRN (19:29)
[2021-05-02] MEDS ORDERED: LACTATED RINGERS 1,000 ML IV SCH (20:00)
--- NOTE | 2021-05-02 20:07 | PROCEDURE REPORT ---
- HPI Diagnosis/Indication for NST: Other (Contractions.) Current EDU 05/05/21 Gestation 39 Weeks and 4 Days 2 Para 1 Vital Signs Temperature 98.4 F 05/02/21 18:20 Heart Rate 97 05/02/21 18:20 Respiratory Rate 17 05/02/21 18:20 Blood Pressure 121/74 05/02/21 18:20 O2 Saturation 100 05/02/21 18:20 Temperature 98.4 F 05/02/21 18:20 Heart Rate 97 05/02/21 18:20 Respiratory Rate 17 05/02/21 18:20 Blood Pressure 121/74 05/02/21 18:20 O2 Saturation 100 05/02/21 18:20 - NST Procedure NST Procedure Start Date 05/02/21 Start Time 18:15 Stop Time 19:00 Vibroacoustic Stimulation Used No Patient States Movement Yes 25 yo returned after 7 hours complaining of having Contractions. NST: Baseline 145 with moderate variability. Accelerations 15X15. No decelera tions. Contractions 3-6 minutes apart. Reactive NST and Category I Monitor strip.
[2021-05-02 20:11] LABS: BASOPHILS % (AUTO) 0.3 %; EOSINOPHILS % (AUTO) 0.2 %; HCT - HEMATOCRIT 35.3 % (37.0-47.0); HGB - HEMOGLOBIN 11.6 g/dL (12.0-16.0); LYMPHOCYTES # (AUTO) 1.7 10^3/uL (1.5-3.5); LYMPHOCYTES % (AUTO) 18.3 %; MEAN CORPUSCULAR HEMOGLOBIN 29.7 pg (27.0-31.0); MEAN CORPUSCULAR HGB CONC 32.9 g/dL (32.0-36.0); MEAN CORPUSCULAR VOLUME 90.3 fL (81.0-99.0); MEAN PLATELET VOLUME 12.1 fL (7.9-10.8); MONOCYTES # (AUTO) 0.8 10^3/uL (0.0-1.0); MONOCYTES % (AUTO) 8.2 %; NEUTROPHILS # (AUTO) 6.8 10^3/uL (1.5-6.6); NEUTROPHILS % (AUTO) 72.7 %; PLT - PLATELET COUNT 153 10^3/uL (130-450); RED BLOOD COUNT 3.91 10^6/uL (4.20-5.40); RED CELL DISTRIBUTION WIDTH 13.1 % (12.0-15.0); WHITE BLOOD COUNT 9.4 x10^3/uL (4.8-10.8)
--- NOTE | 2021-05-02 20:16 | HISTORY & PHYSICAL EXAMINATION ---
Admit History - Visit Reason Visit Reason: Contractions - : 2 Parity: 1 Premature: 0 Ectopic: 0 : 0 Care: positive: Other ([facility]) Risk/History: positive: None Complications This : positive: None Smoking Status: Never smoker - Mother's Labs Mother's Blood Type: positive: O Mother's RH: positive: Positive GBS: positive: Group B Step Negative Rubella Status: positive: Immune Meds/Allgy - Home Medications Home Medications: Ambulatory Orders Medication Instructions Recorded Confirmed Mupirocin 1 applic TP TID #15 g 10/29/19 Naproxen 375 mg PO BID #20 tablet 10/29/19 Sulfamethox/Trimeth 800/160 1 each PO BID #14 tablet 10/29/19 [Bactrim Ds 800/160] - Allergies Allergies/Adverse Reactions: Allergies Allergy/AdvReac Type Severity Reaction Status Date / Time No Known Drug Allergies Allergy Verified 10/29/19 12:40 Review of Systems - Constitutional Constitutional: denies: Fatigue - Cardiovascular Cariovascular: denies: Irregular heart rate, Palpitations - Respiratory Respiratory: denies: Cough, Sputum production, Wheezing - Genitourinary Genitourinary: denies: Dysuria, Frequency - Integumentary Integumentary: denies: Rash Physical - Abdominal Exam Vital Signs: Temp Pulse Resp BP Pulse Ox 98.4 F 97 17 121/74 100 05/02/21 18:20 05/02/21 18:20 05/02/21 18:20 05/02/21 18:20 05/02/21 18:20 Contraction Frequency (min/apart): Every 3-6 minutes on admissioin Contraction Intensity: positive: Moderate Uterine Resting Tone: positive: Soft - Monitoring Heart Rate Baseline: 145 Strip Review: positive: Category I - Presentation Presentation: positive: Vertex - Vaginal Exam Membranes: positive: Membranes intact Dilation (in cm): 4 Effacement (%): 90 Station: positive: -3, Ballotable Cervical Position: positive: Posterior - Speculum Exam Speculum Exam Performed: positive: No - Other Notes Labor Progress Note/Additional Text: 25 yo at 39 4/7 weeks presented to Triage with Contractions. Patient reports good movement. Patient denies SROM or vaginal bleeding. Patient had excellent care with Ashly Silva CNM. Monitor strip is Baseline 145 with moderate variability. Accelerations are present. No decelerations. Contractions now more 3-4 minutes. Category I Monitor strip. A-IUP 39 11/25 in Active Labor. P- Admit for Labor. Routine orders. Anticipate .
[2021-05-02] MEDS ORDERED: fentaNYL 100 MCG/2 ML VIAL ONE (21:25)
[2021-05-02] MEDS ORDERED: OXYTOCIN/SODIUM CHLORIDE 500 ML IV ONE (21:25)
[2021-05-02] MEDS ORDERED: fentaNYL 100 MCG/2 ML VIAL IVP PRN (21:30)
[2021-05-02] MEDS ORDERED: CARBOPROST TROMETHAMINE 250 MCG/ML AMP IM ONE (21:42)
[2021-05-02] MEDS ORDERED: METHYLERGONOVINE 0.2 MG/ML VIAL ONE (21:44)
[2021-05-02] MEDS ORDERED: LACTATED RINGERS 2,000 ML IV ONE (21:47)
[2021-05-03] MEDS ORDERED: SODIUM CHLORIDE FLUSH 0.9% 10 ML SYRINGE IVP SCH (01:00)
[2021-05-03] MEDS ORDERED: HYDROCORTISONE 1% CREAM 28 GM TUBE PR PRN (01:06)
[2021-05-03] MEDS ORDERED: WITCH HAZEL/GLYCERIN 1 PAD TOP PRN (01:06)
[2021-05-03] MEDS ORDERED: OXYTOCIN/SODIUM CHLORIDE 500 ML IV PRN (01:06)
--- NOTE | 2021-05-03 01:06 | DELIVERY NOTE ---
Delivery Note - Labor Labor: positive: Spontaneous - Delivery Method Delivery Method: positive: Spontaneous vaginal delivery - Presentation Presentation: positive: Vertex, OA - occiput anterior - Nuchal Cord Nuchal Cord: positive: None - Anesthetic Anesthetic: positive: Lidocaine - 1% plain Volume: positive: Other (15cc) - Amniotic Fluid Description Amniotic Fluid Description: positive: Clear - Episiotomy Type Episiotomy Type: positive: None - Laceration Laceration: positive: Periurethral (Bilateral) - Suture Suture Type: positive: Vicryl Suture Size: positive: 2-0 - Delivery Outcome Delivery Outcome: positive: Livebirth - [place]: positive: Placed in direct skin contact with mother sex: positive: Female : 89 - Cord Cord: positive: 3 vessels - Placenta Placenta: positive: Intact, Spontaneous - Estimated Blood Loss Estimated Blood Loss (in cc): 250 - Post Delivery Events Post Delivery Events: positive: No post delivery events - Delivery Comments (Free Text/Narrative) Delivery Comments (Free Text/Narrative): 25yo at 39 4/7 presented with contractions. Patient progressed slowly into active labor. Patient continued to progress. Patient received IV Fentanyl. Patient progressed to 9cm and head had descended enough to safely AROM. Clear fluid was present. Patient progressed to complete. Patient had a 10 minute second stage of labor. over intact perineum with the head in OA position. Maternal forces delivered anterior shoulder under the pubic bone. Remainder of delivered spontaneously. Living female with Apgars of 8/9/. Infant placed on mother's abdomen. Delayed cord clamping for 2 minutes. Cord clamped times two and cut by Grandma. Pitocin started in IV. Cord blood obtained. Placenta delivered spontaneously, Intact, with JOHN present. Cervix inspected and found to be intact. Bilateral periurethral lacerations were present and required repair. 1%Lidocaine was injected into the lacerations. 2-0 Vicryl in figure of 8 fashion and interrupted fashion was utilized to approximate the skin edges. Good hemostasis and approximation was obtained on both sides. EBL is 250cc. Sponge, needle and Instrument counts are correct. Mother and Infant are resting in stable condition.
[2021-05-03] MEDS ORDERED: LACTATED RINGERS 1,000 ML IV SCH (02:00)
[2021-05-03] MEDS: IBUPROFEN 600 MG TABLET PO SCH ×4 (02:01→22:32)
[2021-05-03] MEDS: ACETAMINOPHEN 500 MG TABLET PO SCH ×3 (02:01→18:28)
[2021-05-03] MEDS: DOCUSATE SODIUM 100 MG CAPSULE PO SCH ×2 (08:26→22:33)
[2021-05-04] MEDS: ACETAMINOPHEN 500 MG TABLET PO SCH ×3 (04:31→18:45)
[2021-05-04] MEDS: IBUPROFEN 600 MG TABLET PO SCH ×3 (04:32→16:45)
[2021-05-04 08:01] LABS: BASOPHILS % (AUTO) 0.2 %; EOSINOPHILS # (AUTO) 0.1 10^3/uL (0.0-0.7); HCT - HEMATOCRIT 33.6 % (37.0-47.0); HGB - HEMOGLOBIN 10.7 g/dL (12.0-16.0); LYMPHOCYTES % (AUTO) 15.6 %; MEAN CORPUSCULAR HEMOGLOBIN 29.3 pg (27.0-31.0); MEAN CORPUSCULAR HGB CONC 31.8 g/dL (32.0-36.0); MEAN CORPUSCULAR VOLUME 92.1 fL (81.0-99.0); MEAN PLATELET VOLUME 11.9 fL (7.9-10.8); MONOCYTES # (AUTO) 0.7 10^3/uL (0.0-1.0); MONOCYTES % (AUTO) 5.2 %; NEUTROPHILS # (AUTO) 9.8 10^3/uL (1.5-6.6); NEUTROPHILS % (AUTO) 77.4 %; PLT - PLATELET COUNT 131 10^3/uL (130-450); RED BLOOD COUNT 3.65 10^6/uL (4.20-5.40); RED CELL DISTRIBUTION WIDTH 13.2 % (12.0-15.0); WHITE BLOOD COUNT 12.6 x10^3/uL (4.8-10.8)
--- NOTE | 2021-05-04 10:17 | DISCHARGE SUMMARY ---
"Discharge Summary Admit Date: 05/02/21 Discharge Date: 05/04/21 Discharging Provider: Manuel Freed DO Code Status: Attempt Resuscitation Condition at Discharge: Good Discharge Disposition: 01 Home, Self Care Discharge Facility Name: [facility] - DIAGNOSES Admission Diagnoses: IUP 40 4/7, Active Labor Discharge Diagnoses with Status of Each Condition: S/P with repair of lacerations. - HPI History of Present Illness: 25yo at 40 4/7 weeks had excellent care with Ashly Silva CNM. Patient presented in labor and was admitted. No complications during . All labs were within normal range. - CONSULTS | PROCEDURES Procedures: with repair of lacerations. - HOSPITAL COURSE Hospital Course: 25yo at 40 4/7 presented to labor and delivery complaining of contractions. Patient's contractions increased in frequency and intensity so she was admitted. Patient progressed in a normal fashion. Patient had with repair of vaginal/periurthral lacerations. Patient delivered a living female with Apgars of 8/9 and weight of 7# 2 oz. Patient has had a routine course. Patient is ambulating, urinating and tolerating a regular diet. Patient is breast feeding. Patient is ready to be discharged to home. - ALLERGIES Allergies/Adverse Reactions: Allergies Allergy/AdvReac Type Severity Reaction Status Date / Time No Known Drug Allergies Allergy Verified 10/29/19 12:40 - MEDICATIONS Home Medications: Ambulatory Orders Medication Instructions Recorded Confirmed Mupirocin 1 applic TP TID #15 g 10/29/19 Naproxen 375 mg PO BID #20 tablet 10/29/19 Sulfamethox/Trimeth 800/160 1 each PO BID #14 tablet 10/29/19 [Bactrim Ds 800/160] - PHYSICAL EXAM AT DISCHARGE General Appearance: positive: No acute distress, Alert Respiratory: positive: Breath sounds nml. negative: Wheezes, Rales, Rhonchi Cardiovascular: positive: Regular rate & rhythm, No murmur, No gallop Abdomen: positive: Non-tender, Nml bowel sounds, Other (Fundus is firm and two fingers below the umbilicus.) Skin: positive: Color nml Extremities: positive: No pedal edema. negative: Calf tenderness Neurologic/Psychiatric: positive: Oriented x3, Mood/affect nml Reflexes: Knee (L): 2+ - LABS Result Diagrams: 05/04/21 07:32 - QUALITY (Female Hip Fx Only) Was patient sent home on osteoporosis medication?: No - FOLLOW UP Follow Up: One week with Ashly Sivla CNM in the clinic. - TIME SPENT Time Spent in Discharge (Minutes): 30"
--- NOTE | 2021-05-04 10:23 | Discharge Plan ---
Discharge Plan Problem Reviewed?: Yes Disposition: Home, Self Care Condition: Good Diet: Regular Activity Restrictions: Pelvic Rest Shower Restrictions: No Weight Bearing: Full Weight No Smoking: If you smoke, Please STOP! Call for help. Follow-up with: Ashly Silva CNM, ARNP [Provider Admit Priv/Credential] -
[2021-05-04] MEDS: DOCUSATE SODIUM 100 MG CAPSULE PO SCH (10:48)
[2021-05-04 18:47] VITALS: BP 117/70
== END 2021-05-04 18:50 | disposition home or self-care (01) | DRG 807 ==
LOC: WFO 17:59 → FBP 18:02 → WFO 19:28 → FBP 19:29
PROVIDERS: ADMIT Obstetrics & Gynecology; ATTEND Obstetrics & Gynecology
PROC: 10E0XZZ Delivery of Products of Conception, External Approach (ICD-10-PCS; principal; 2021-05-03)
PROC: 10907ZC Drainage of Amniotic Fluid, Therapeutic from Products of Conception, Via Natural or Artificial Opening (ICD-10-PCS; 2021-05-03)
PROC: 0UQMXZZ Repair Vulva, External Approach (ICD-10-PCS; 2021-05-03)
DX: O71.82 Other specified trauma to perineum and vulva (principal); Z37.0 Single live birth; O32.2XX0 Maternal care for transverse and oblique lie, not applicable or unspecified; Z3A.39 39 weeks gestation of pregnancy
CPT/HCPCS: 36415; 59025; 85025; 86850; 86900; 86901; 99214; 99215; A9270; J7120; 99213

== ENCOUNTER 2021-07-31 16:44 | Emergency (ER) | payer MEDICAID ==
[2021-07-31 17:03] VITALS: BP 116/69
[2021-07-31] MEDS ORDERED: CLINDAMYCIN 150 MG CAPSULE PO STA (17:27)
[2021-07-31] MEDS ORDERED: LIDOCAINE-EPINEPH-TETRACAINE 3 ML SYRINGE TOP STA (17:27)
--- NOTE | 2021-07-31 17:30 | ED Physician Documentation ---
History of Present Illness - Stated complaint Stated Complaint: LUMP ON FOREHEAD - Chief complaint Chief Complaint: Heent - History obtained from History obtained from: Patient (Noted a painful lump on her forehead last night and developed surrounding swelling today. No fevers. No history of skin infections or MRSA.) Review of Systems Constitutional: reports: Reviewed and negative Eyes: reports: Reviewed and negative Ears: reports: Reviewed and negative PD PAST MEDICAL HISTORY - Past Medical History Past Medical History: No Cardiovascular: None Respiratory: None Neuro: None Endocrine/Autoimmune: None GI: None [employer]: None HEENT: None Derm: None - Present Medications Home Medications: Ambulatory Orders Medication Instructions Recorded Confirmed Mupirocin 1 applic TP TID #15 g 10/29/19 Naproxen 375 mg PO BID #20 tablet 10/29/19 Sulfamethox/Trimeth 800/160 1 each PO BID #14 tablet 10/29/19 [Bactrim Ds 800/160] clindamycin HCL [Cleocin HCl] 300 mg PO QID #28 cap 07/31/21 - Allergies Allergies/Adverse Reactions: Allergies Allergy/AdvReac Type Severity Reaction Status Date / Time No Known Drug Allergies Allergy Verified 07/31/21 17:03 - Social History Does the pt smoke?: No Smoking Status: Never smoker PD ED PE NORMAL - Vitals Vital signs reviewed: Yes - General General: Alert and oriented X 3, No acute distress - HEENT HEENT: PERRL, EOMI, Other (There is a very small abscess on the left forehead above the eyebrow with some surrounding induration and cellulitis.) - Neuro Neuro: Alert and oriented X 3, Normal speech Results - Vitals Vitals: Vital Signs - 24 hr 07/31/21 16:59 Temperature 36.3 C L Heart Rate 88 Respiratory 16 Rate Blood Pressure 116/69 O2 Saturation 99 Oxygen O2 Source Room air Procedures - Abscess I&D (location) L forehead Preparation: Confirmed with ultrasound, Other (lidocaine gel) Incision: Needle aspiration, Purulent drainage, Culture obtained Other: Pt tolerated well, Antibiotic prescribed Departure - Departure Disposition: 01 Home, Self Care Clinical Impression: Facial abscess, Facial cellulitis Condition: Good Record reviewed to determine appropriate education?: Yes Instructions: ED Cellulitis Facial Prescriptions: clindamycin HCL [Cleocin HCl] 300 mg PO QID #28 cap Comments: Antibiotic prescription was sent electronically to [facility]. Return if worsening or if you develop a fever. We are performing a wound culture, the results should be done in 48-72 hours. If antibiotic change is necessary we will call you. Return if worse in the meantime, especially if you develop increased pain, fevers, cannot keep down the medication. Otherwise follow-up with your physician in approximately 2-3 days. Discharge Date/Time: 07/31/21 18:12
[2021-07-31] MEDS ORDERED: LIDOCAINE OINTMENT 5% 35.44 GM TUBE TOP STA (17:33)
== END 2021-07-31 18:12 | disposition home or self-care (01) ==
LOC: ED 16:44
DX: L02.01 Cutaneous abscess of face (principal); L03.211 Cellulitis of face
CPT/HCPCS: 10160; 87070; 87181; 87205; 99283; A9270

== ENCOUNTER 2022-03-21 08:00 | Outpatient (CLI) | payer MEDICAID ==
[2022-03-21 23:18] LABS: CHLAMYDIA TRACHOMATIS DNA NEGATIVE (NEGATIVE); NEISSERIA GONORRHOEAE DNA NEGATIVE (NEGATIVE); TRICHOMONAS VAGINALIS DNA NEGATIVE (NEGATIVE)
== END 2022-03-21 23:59 | disposition home or self-care (01) ==
LOC: LAB.WC 08:00
PROVIDERS: ATTEND Nurse Practitioner
DX: A56.00 Chlamydial infection of lower genitourinary tract, unspecified (principal)
CPT/HCPCS: 87491; 87591; 87661

== ENCOUNTER 2024-05-10 08:00 | Outpatient (CLI) | payer MEDICAID ==
[2024-05-10 21:02] LABS: BACTERIAL VAGINOSIS DNA POSITIVE (NEGATIVE); CANDIDA GLABRATA DNA NEGATIVE (NEGATIVE); CANDIDA GROUP DNA NEGATIVE (NEGATIVE); CANDIDA KRUSEI DNA NEGATIVE (NEGATIVE); TRICHOMONAS VAGINALIS DNA NEGATIVE (NEGATIVE)
== END 2024-05-10 23:59 | disposition home or self-care (01) ==
LOC: LAB 08:00
PROVIDERS: ATTEND Physician Assistant
DX: N39.0 Urinary tract infection, site not specified (principal)
CPT/HCPCS: 81514; 87086